=== PATIENT | female | born 1995 | race Caucasian/White ===

== ENCOUNTER 2022-02-22 12:39 | Emergency (ER) | payer OTHER, SELFPAY ==
--- NOTE | ~2022-02-22 | XR_ITS ---
EXAMINATION: XR LUMBOSACRAL SPINE CLINICAL INFORMATION: Low back pain x2 weeks COMPARISON: None TECHNIQUE: Three views of the lumbosacral spine. FINDINGS: There is a transitional vertebra at the lumbosacral junction with 4 lumbar type nonrib-bearing vertebra. Vertebral body heights and disc spaces are intact with no fracture or spondylolisthesis. No bony destructive lesions. Bilateral sacroiliac joints demonstrate mild sclerosis. Bowel gas pattern unremarkable XR/XR lumbar spine 2-3V IMPRESSION: No acute bony abnormality. There is mild sclerosis in the bilateral sacroiliac joints and mild sacroiliitis cannot be excluded
[2022-02-22 13:21] VITALS: BP 107/42; PULSE 66; RESP 18; TEMP 36.4; O2SAT 100; BMI 32.1
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
[2022-02-22 16:24] LABS: UPreg QC Valid YES; Urine Pregnancy NEGATIVE (NEGATIVE)
== END 2022-02-22 17:43 | disposition home or self-care (01) ==
PROVIDERS: Physician Assistant Medical; Emergency Provider Emergency Medicine
DX: S39.012A Strain of muscle, fascia and tendon of lower back, initial encounter (principal); V89.2XXA Person injured in unspecified motor-vehicle accident, traffic, initial encounter; Y93.9 Activity, unspecified; Y92.410 Unspecified street and highway as the place of occurrence of the external cause; Y99.9 Unspecified external cause status
CPT/HCPCS: 72100; 81025; 99283

== ENCOUNTER 2022-03-09 11:02 | Outpatient (REF) | payer OTHER, SELFPAY | END 2022-03-09 11:03 | disposition home or self-care (01) | LOC: HO.MAMMO 11:02 | PROVIDERS: Visit Provider Registered Nurse Community Health | DX: O92.6 Galactorrhea (principal) | CPT/HCPCS: 76642 ==

== ENCOUNTER 2022-05-01 14:04 | Emergency (ER) | payer OTHER, SELFPAY ==
[2022-05-01 14:40] VITALS: BP 105/53; PULSE 80; RESP 18; TEMP 36.3; O2SAT 99; BMI 32.0
[2022-05-01 15:21] LABS: Appearance Urine CLEAR; Color Urine YELLOW; Glucose Urine UA NEG (NEG); Leukocyte Esterase Urine NEG (NEG); Nitrite Urine NEG (NEG); Specific Gravity - Urine 1.025 (1.005-1.025); Urine Blood NEG (NEG); Urine Ketones NEG (NEG); Urine Protein NEG (NEG-TRACE)
[2022-05-01 16:14] LABS: MANUAL DIFF FLAG NO
[2022-05-01 16:16] LABS: Basophils Absolute Auto 0.1 X10*3/uL (0.0-0.2); Basophils Percent Auto 0.6 % (0-2); Eosinophils Absolute Auto 0.1 X10*3/uL (0.0-0.4); Eosinophils Percent Auto 1.5 % (0-4); Hematocrit 36.7 % (37.0-47.0); Hemoglobin 12.6 g/dl (12.0-16.0); Imm Gran Abs Auto 0.02 X10*3/uL (0.00-0.03); Imm Gran Pct Auto 0.2 % (0.0-0.4); Lymphocytes Absolute Auto 2.7 X10*3/uL (1.2-4.9); Lymphocytes Percent Auto 29.6 % (20-40); Mean Corpuscular HGB Conc 34.3 g/dl (31.0-35.0); Mean Corpuscular Hemoglobin 29.9 pg (27.0-33.0); Mean Corpuscular Volume 87.2 fL (80.0-98.0); Mean Platelet Volume 9.7 fL (9.4-12.3); Monocytes Absolute Auto 0.4 X10*3/uL (0.1-1.2); Monocytes Percent Auto 3.9 % (2-11); Neutrophils Absolute Auto 5.7 x10*3/uL (2.0-8.3); Neutrophils Percent Auto 64.2 % (45-73); Platelet Count 288 X10*3/uL (160-400); Red Blood Count 4.21 X10*6/uL (4.20-5.50); White Blood Count 8.9 X10*3/uL (4.8-10.8)
[2022-05-01 16:32] LABS: Anion Gap 14 (12-20); Blood Urea Nitrogen 14 mg/dL (9-16); Calcium 9.1 mg/dL (8.4-10.2); Carbon Dioxide 23 mmol/L (22-29); Chloride 105 mmol/L (96-108); Creatinine Clr Calc Pharmacy 108.5; Estimated Glomerular Filt Rate > 60; Glucose Random 78 mg/dL (60-115); Potassium 3.8 mmol/L (3.3-5.1); Sodium 138 mmol/L (135-145)
[2022-05-01 18:37] LABS: UPreg QC Valid YES; Urine Pregnancy POSITIVE (NEGATIVE)
--- NOTE | 2022-05-02 00:11 | PC.NURSE ---
pt called to bring back into the room. no answer
== END 2022-05-02 00:24 | disposition left against medical advice (07) ==
LOC: HO.ED 05-02 00:20
PROVIDERS: Emergency Medicine; Emergency Provider Emergency Medicine
DX: M54.50 Low back pain, unspecified (principal); Z79.899 Other long term (current) drug therapy
CPT/HCPCS: 36415; 80048; 81003; 81025; 85025; 99282

== ENCOUNTER → 2022-05-19 10:10 | Outpatient (BNVA) | payer OTHER, SELFPAY | PROVIDERS: Visit Provider Advanced Practice Midwife | DX: Z32.01 Encounter for pregnancy test, result positive (principal) | CPT/HCPCS: 81025; 99202 ==

== ENCOUNTER 2022-05-21 13:05 | Outpatient (REF) | payer OTHER, SELFPAY ==
--- NOTE | ~2022-05-21 | US_ITS ---
EXAMINATION: US OBSTETRICAL ULTRASOUND CLINICAL INFORMATION: Positive test COMPARISON: None. LMP: Unknown. Gestational age by maternal dates is . Estimated date of delivery by maternal dates is . TECHNIQUE: Transabdominal first trimester OB ultrasound FINDINGS: There is a single intrauterine gestational sac with visible yolk sac, embryo/fetus, and cardiac activity. There is no significant subchorionic hemorrhage or hematoma. HR: 183 beats per minute. CRL (crown rump length): 1.9 cm (8 weeks 4 days +/- 4 days). HEATH (estimated date of delivery): 12/27/2022 +/- 4 days. MATERNAL ADNEXA: The right maternal ovary measures 2.3 x 1.6 x 1.5 cm. The left maternal ovary measures 3.4 x 1.8 x 2.2 cm. there is a 1.5 cm left ovarian cyst. There is no significant maternal adnexal mass. No maternal pelvic ascites. US/US OB <= 14 weeks fetus IMPRESSION: 1. Single intrauterine gestation with ultrasound gestational age of 8 weeks 4 days +/- 4 days. 2. Estimated date of delivery is 12/27/2022 +/- 4 days. 3. No maternal adnexal mass or pelvic ascites.
== END 2022-05-21 13:06 | disposition home or self-care (01) ==
LOC: HO.US 13:05
PROVIDERS: Visit Provider Advanced Practice Midwife
DX: Z34.91 Encounter for supervision of normal pregnancy, unspecified, first trimester (principal); Z3A.08 8 weeks gestation of pregnancy
CPT/HCPCS: 76801

== ENCOUNTER → 2022-05-24 10:58 | Outpatient (BNVA) | payer OTHER, SELFPAY | PROVIDERS: Visit Provider Advanced Practice Midwife | DX: Z34.80 Encounter for supervision of other normal pregnancy, unspecified trimester (principal); Z3A.00 Weeks of gestation of pregnancy not specified | CPT/HCPCS: Q3014 ==

== ENCOUNTER 2022-06-14 09:27 | Emergency (ER) | payer OTHER, SELFPAY ==
--- NOTE | ~2022-06-14 | US_ITS ---
EXAMINATION: US OBSTETRICAL ULTRASOUND CLINICAL INFORMATION: Bleeding with clots. COMPARISON: Pelvic ultrasound 05/21/2022. LMP: Unsure. TECHNIQUE: Ultrasound of the maternal pelvis is performed using transabdominal and transvaginal transducers. Transvaginal imaging is performed due to inadequate visualization transabdominally. FINDINGS: No evidence of intrauterine . The mid and lower endometrium are thickened and heterogeneous measuring up to 2.3 cm with some questionable associated mild vascularity. The right adnexa is not well visualized due to shadowing from overlying bowel gas, and the right ovary was not identified. The left ovary is normal in size with preserved flow at the moment of this examination measuring 2.4 x 1.5 x 1.2 cm. No significant amount of free fluid. US/US OB pelvic and transvaginal IMPRESSION: No evidence of intrauterine . Thickened and heterogeneous endometrium with some equivocal associated mild vascularity, nonspecific, could be related with retained products of conception or blood products. Recommend correlation with physical examination, quantitative hCG measurements and close imaging follow-up.
[2022-06-14 09:35] VITALS: BP 117/77; PULSE 52; RESP 20; TEMP 36.8; O2SAT 99; BMI 32.4
--- NOTE | 2022-06-14 09:58 | ED_ITS ---
HPI - Female Genitourinary General Chief complaint: Vaginal Bleeding Stated complaint: Miscarriage? 11 wks preg Time Seen by Provider: 06/14/22 09:40 Source: patient Mode of arrival: ambulatory Limitations: no limitations History of Present Illness HPI Narrative: Patient presents emergency department for evaluation vaginal bleeding. She reports that she is currently 11 weeks 5 days , is uncertain of the date of her last menstrual period, stating that she had an ultrasound to confirm gestation. She 1st noticed bleeding 2 days ago that was very light and spotting, she states that she contacted her primary care doctor who advised her that if it was only very light in only noticed with in the toilet paper that likely things will be okay but if it changed in any way she should be evaluated in the emergency department. By her report she is changing a regular absorbency pad every 2 minutes, stating that the full pad is saturated within that time frame and there is presence of clots. Has associated lower abdominal cramping. She has not yet contacted her OB provider. She had her first OB a ppointment through [facility] earlier this month, she states she is in the process of transferring her OB care. Denies fevers, chills, nausea,, chest pain shortness of pain, dysuria, Faisal/urgency/hesitancy, denies possibility of sexually transmitted infections. Related Data Home Medications Medication Instructions Recorded Confirmed prenat.vits,barby,fax-vmky-bnioj 1 tab PO DAILY 05/24/22 Previous Rx's Medication Instructions Recorded pyridoxine (vitamin B6) 25 mg 25 mg PO TID #90 tabs 05/19/22 tablet Allergies Allergy/AdvReac Type Severity Reaction Status Date / Time No Known Allergies Allergy Verified 05/24/22 10:59 [No Known Allergies*] Review of Systems Review of Systems: Constitutional : No Fever, No Chills ENT/Mouth : No sore throat, No Rhinorrhea Eyes: No Eye Pain, No Redness Cardiovascular : No Chest Pain, No SOB Respiratory : No Cough, No Sputum, No Wheezing Gastrointestinal : No Nausea, No Vomiting, No Diarrhea, positive abdominal pain, Genitourinary : positive vaginal bleeding, No Dysuria, No Urinary Frequency, positive pelvic pain Musculoskeletal : No Myalgias Skin : No rash Neuro : No Weakness, No Headache Psych : No Anxiety/Panic, No Depression Heme/Lymph: No bruising, No Lymphadenopathy Endocrine : No Polyuria, No Polydipsia Yes all other systems are reviewed and are negative [facility] Past Medical History Attestation statement: The following information was validated with the patient. Medical History ADD (attention deficit disorder) ADHD Back problem No known health problems Physical Exam Vital Signs: Vital Signs: Last Vital Signs Temp 98.7 F 06/14/22 15:08 Pulse 80 06/14/22 15:08 Resp 15 06/14/22 15:08 BP 121/54 L 06/14/22 15:08 Pulse Ox 100 06/14/22 15:08 O2 Del Method 06/14/22 15:08 BMI result Body Mass Index 32.4 Appearance: Alert.?Oriented to person, place and time. No acute distress.?Normal affect. Eyes: Pupils equal, round and reactive to light.? ENT: Pharynx normal.?? Neck: Normal inspection.? Neck supple.?? CVS: Heart sounds normal. Normal heart rate and rhythm.? Pulses normal.?? Respiratory: No respiratory distress.? Lung sounds clear to auscultation bilaterally?? Abdomen: Soft and non-tender. Normoactive bowel sounds. Genitourinary:? Supervised by superintendent schoolsIris Hartley.. Normal external appearance of urethra.? No lesions/lacerations or discharge or tenderness noted. Speculum exam: Presence of vaginal active bleeding noted with presence of clots.?No foreign bodies noted.? Positive vaginal tenderness noted. Unable to visualize the cervix due to the amount of bleeding, it is unclear whether the cervical os is open or closed at this time. Normal rectovaginal exam.?? Skin: Skin warm and dry.? Normal skin color.? Extremities: No lower extremity edema.? No calf ttp? Neuro: Moves all extremities spontaneously. Sensation intact bilaterally. No motor deficits Ambulates with normal steady gait. Course Course Course Narrative: Patient is a 27-year-old female G6 T2 L2, currently 11w/5d due date 12/27/2022 presenting to emergency department today for evaluation of lower abdominal cramping and vaginal bleeding with presents of clots. Patient rep orting a significant amount of bleeding requiring pads to be changed every 2 minutes, at the time of examination there is no significant bleeding/hemorrhage noted. She does have tenderness upon palpation of the lower abdomen. She is overall well appearing. Vital signs are stable, she is noted to be bradycardic however with heart rate of 52. Will obtain CBC, Rh, CMP, urinalysis, hCG, pelvic ultrasound, and plan for genitourinary pelvic examination. Reevaluation(s) Reevaluation #1: Perform pelvic exam with ED silk top hat body maker, iris Hartley, difficulty visualizing the cervix, copious amounts of bleeding, with presence of clots, despite clearing blood again report also. Review of serum labs, hemoglobin 12.4 and hematocrit 36.2. HCG is 2097. Ultrasound is pending at this time. Blood type is O-positive therefore she will not require RhoGAM. She remains well appearing, vital signs are stable. Reached out to care analyst on-call Dr. Pathak, to make him aware of patient, as she may require further evaluation. He will come down to evaluate the patient. Time: 10:44 Reevaluation #2: Dr. Pathak examined patient, no active bleeding at this time. Ultrasound is still pending. Plan to monitor patient for the next few hours, if ultrasound reveals obvious products of conception or patient begins to rebleed he will consider taking patient for D&C, Patient to remain NPO at this time Time: 12:15 Reevaluation #3: 1240: Ultrasound reveals no evidence of intrauterine , thickened and heterogeneous endometrium with some equivocal findings for retained products of conception or blood products. 1515: Patient with scant amount of bleeding as when evaluated Dr. Pathak. At this point clinical course appears like complete , however was concern on ultrasound for possible retained products of conception, therefore will discharge home with incomplete warnings, reasons to come back including heavy bleeding, cramping, fevers, advised that she will require outpatient follow-up in office within 2 weeks. Patient verbalized understanding. She is discharged home in stable condition. MDM - Female Genitourinary Medical Records Attestation: I reviewed the patient's medical records. Lab Data Attestation: I reviewed the patient's lab results. Result diagrams: 06/14/22 10:11 06/14/22 10:11 Labs: Lab Results 06/14/22 06/14/22 06/14/22 Range/Units 10:11 10:11 10:30 WBC 10.7 (4.8-10.8) X10*3/uL RBC 4.11 L (4.20-5.50) X10*6/uL Hgb 12.4 (12.0-16.0) g/dl Hct 36.2 L (37.0-47.0) % MCV 88.1 (80.0-98.0) fL MCH 30.2 (27.0-33.0) pg MCHC 34.3 (31.0-35.0) g/dl RDW 12.7 (11.0-16.0) % Plt Count 258 (160-400) X10*3/uL MPV 9.6 (9.4-12.3) fL Immature Gran % (Auto) 0.5 H (0.0-0.4) % Neut % (Auto) 74.2 H (45-73) % Lymph % (Auto) 18.3 L (20-40) % [place] % (Auto) 4.3 (2-11) % Eos % (Auto) 2.2 (0-4) % Baso % (Auto) 0.5 (0-2) % Lymph # (Auto) 2.0 (1.2-4.9) X10*3/uL [place] # (Auto) 0.5 (0.1-1.2) X10*3/uL Eos # (Auto) 0.2 (0.0-0.4) X10*3/uL Baso # (Auto) 0.1 (0.0-0.2) X10*3/uL Abs Immat Gran (auto) 0.05 H (0.00-0.03) X10*3/uL Absolute Neuts (auto) 7.9 (2.0-8.3) x10*3/uL Absolute Nucleated RBC 0.000 (0.0-0.012) X10*3/uL Nucleated RBC % (auto) 0.0 (0.0-0.2) /100WBC Sodium 140 (135-145) mmol/L Potassium 4.1 (3.3-5.1) mmol/L Chloride 103 (96-108) mmol/L Carbon Dioxide 26 (22-29) mmol/L Anion Gap 15 (12-20) BUN 12 (9-16) mg/dL Creatinine 0.70 (0.5-1.4) mg/dL Estim Creat Clear Calc 118.6 Estimated GFR > 60 Random Glucose 101 (60-115) mg/dL Calcium 9.6 (8.4-10.2) mg/dL Magnesium 1.8 (1.6-2.6) mg/dL Total Bilirubin 0.7 (0.0-1.0) mg/dL AST 17 (5-31) U/L ALT 15 (0-31) U/L Alkaline Phosphatase 60 (39-117) U/L Total Protein 6.8 (6.5-8.0) g/dL Albumin 4.0 (3.5-5.0) g/dL Beta HCG, Quant 2097 mIU/mL Urine Color Urine Appearance Urine pH (5.0-8.0) Ur Specific [place] (1.005-1.025) Urine Protein (Neg-Trace) mg/dL Urine Glucose (UA) (Negative) mg/dL Urine Ketones (Negative) mg/dL Urine Blood (Negative) Urine Nitrite (Negative) Ur Leukocyte Esterase (Negative) Urine RBC (0-2) /HPF Urine WBC (0-5) /HPF Ur Squamous Epith Cells (0-2) /HPF Urine Bacteria (None Seen) Hyaline Casts (0-2) /LPF Chlam trachomat DNA PCR (Not Detect.) N.gonorrhoeae DNA (PCR) (Not Detect.) Blood Type O Positive 06/14/22 06/14/22 Range/Units 10:30 12:57 WBC (4.8-10.8) X10*3/uL RBC (4.20-5.50) X10*6/uL Hgb (12.0-16.0) g/dl Hct (37.0-47.0) % MCV (80.0-98.0) fL MCH (27.0-33.0) pg MCHC (31.0-35.0) g/dl RDW (11.0-16.0) % Plt Count (160-400) X10*3/uL MPV (9.4-12.3) fL Immature Gran % (Auto) (0.0-0.4) % Neut % (Auto) (45-73) % Lymph % (Auto) (20-40) % [place] % (Auto) (2-11) % Eos % (Auto) (0-4) % Baso % (Auto) (0-2) % Lymph # (Auto) (1.2-4.9) X10*3/uL [place] # (Auto) (0.1-1.2) X10*3/uL Eos # (Auto) (0.0-0.4) X10*3/uL Baso # (Auto) (0.0-0.2) X10*3/uL Abs Immat Gran (auto) (0.00-0.03) X10*3/uL Absolute Neuts (auto) (2.0-8.3) x10*3/uL Absolute Nucleated RBC (0.0-0.012) X10*3/uL Nucleated RBC % (auto) (0.0-0.2) /100WBC Sodium (135-145) mmol/L Potassium (3.3-5.1) mmol/L Chloride (96-108) mmol/L Carbon Dioxide (22-29) mmol/L Anion Gap (12-20) BUN (9-16) mg/dL Creatinine (0.5-1.4) mg/dL Estim Creat Clear Calc Estimated GFR Random Glucose (60-115) mg/dL Calcium (8.4-10.2) mg/dL Magnesium (1.6-2.6) mg/dL Total Bilirubin (0.0-1.0) mg/dL AST (5-31) U/L ALT (0-31) U/L Alkaline Phosphatase (39-117) U/L Total Protein (6.5-8.0) g/dL Albumin (3.5-5.0) g/dL Beta HCG, Quant mIU/mL Urine Color RED Urine Appearance Turbid Urine pH 7.5 (5.0-8.0) Ur Specific [place] >= 1.030 H (1.005-1.025) Urine Protein 300 (3+) H (Neg-Trace) mg/dL Urine Glucose (UA) 100 H (Negative) mg/dL Urine Ketones Negative (Negative) mg/dL Urine Blood Large (3+) H (Negative) Urine Nitrite Negative (Negative) Ur Leukocyte Esterase Negative (Negative) Urine RBC >20 H (0-2) /HPF Urine WBC 0-5 (0-5) /HPF Ur Squamous Epith Cells 0-2 (0-2) /HPF Urine Bacteria Trace (None Seen) Hyaline Casts 0-2 (0-2) /LPF Chlam trachomat DNA PCR NOT DETECTED (Not Detect.) N.gonorrhoeae DNA (PCR) NOT DETECTED (Not Detect.) Blood Type Imaging Data pelvic US: Radiologist's impression: US/US OB pelvic and transvaginal IMPRESSION: No evidence of intrauterine . ? Thickened and heterogeneous endometrium with some equivocal associated mild vascularity, nonspecific, could be related with retained products of conception or blood products. Recommend correlation with physical examination, quantitative hCG measurements and close imaging follow-up. Discharge Plan Discharge Clinical Impression: Incomplete Patient Disposition: Home, Self-Care Additional Instructions: As we discussed, your bleeding has nearly completely subsided. It is possible that the miscarriage is complete. However, as we discussed if you develop a return of heavy bleeding, cramping, or fevers you should come back to the emergency department. Please contact the OBGYN office to arrange for a follow-up visit in 2 weeks. You may return to emergency department with any new or worsening symptoms or concerns. Prescriptions: No Action pyridoxine (vitamin B6) 25 mg tablet 25 mg PO TID Qty: 90 0RF prenat.vits,barby,[id number]-[id number] Tablet 1 tab PO DAILY Referrals: Aron Pathak MD [Physician] - 2 weeks Interventions: ED Discharge Assessment Last Done: 06/14/22 15:44 Discharge Date/Time: 06/14/22 15:44
[2022-06-14 10:16] LABS: Basophils Absolute Auto 0.1 X10*3/uL (0.0-0.2); Basophils Percent Auto 0.5 % (0-2); Eosinophils Absolute Auto 0.2 X10*3/uL (0.0-0.4); Eosinophils Percent Auto 2.2 % (0-4); Hematocrit 36.2 % (37.0-47.0); Hemoglobin 12.4 g/dl (12.0-16.0); Imm Gran Abs Auto 0.05 X10*3/uL (0.00-0.03); Imm Gran Pct Auto 0.5 % (0.0-0.4); Lymphocytes Percent Auto 18.3 % (20-40); MANUAL DIFF FLAG NO; Mean Corpuscular HGB Conc 34.3 g/dl (31.0-35.0); Mean Corpuscular Hemoglobin 30.2 pg (27.0-33.0); Mean Corpuscular Volume 88.1 fL (80.0-98.0); Mean Platelet Volume 9.6 fL (9.4-12.3); Monocytes Absolute Auto 0.5 X10*3/uL (0.1-1.2); Monocytes Percent Auto 4.3 % (2-11); Neutrophils Absolute Auto 7.9 x10*3/uL (2.0-8.3); Neutrophils Percent Auto 74.2 % (45-73); Platelet Count 258 X10*3/uL (160-400); Red Blood Count 4.11 X10*6/uL (4.20-5.50); Red Cell Distribution Width 12.7 % (11.0-16.0); White Blood Count 10.7 X10*3/uL (4.8-10.8)
[2022-06-14 10:33] LABS: Alanine Aminotransferase 15 U/L (0-31); Alkaline Phosphatase 60 U/L (39-117); Anion Gap 15 (12-20); Aspartate Amino Transferase 17 U/L (5-31); Bilirubin Total 0.7 mg/dL (0.0-1.0); Blood Urea Nitrogen 12 mg/dL (9-16); Calcium 9.6 mg/dL (8.4-10.2); Carbon Dioxide 26 mmol/L (22-29); Chloride 103 mmol/L (96-108); Creatinine Clr Calc Pharmacy 118.6; Estimated Glomerular Filt Rate > 60; Glucose Random 101 mg/dL (60-115); Magnesium 1.8 mg/dL (1.6-2.6); Potassium 4.1 mmol/L (3.3-5.1); Sodium 140 mmol/L (135-145); Total Protein 6.8 g/dL (6.5-8.0)
[2022-06-14 10:39] LABS: HCG Quantitative 2097 mIU/mL
[2022-06-14 10:44] LABS: Appearance Urine Turbid; Color Urine RED; Glucose Urine UA 100 mg/dL (Negative); Leukocyte Esterase Urine Negative (Negative); Nitrite Urine Negative (Negative); PH 7.5 (5.0-8.0); Urine Blood Large (3+) (Negative); Urine Ketones Negative (Negative); Urine Protein 300 (3+) mg/dL (Neg-Trace)
[2022-06-14 10:45] VITALS: BP 105/49; PULSE 77; RESP 17; TEMP 36.9; O2SAT 97
[2022-06-14 10:49] LABS: Specific Gravity - Urine >= 1.030 (1.005-1.025)
[2022-06-14 11:01] LABS: Bacteria Urine Trace (None Seen); RBC Urine >20 /HPF (0-2); Squamous Epithelial Cell Urine 0-2 /HPF (0-2); WBC Urine 0-5 /HPF (0-5)
[2022-06-14 11:38] LABS: Hyaline Casts Urine 0-2 /LPF (0-2)
--- NOTE | 2022-06-14 12:02 | PM.OBCN ---
OB Consult Note - HPI Data Service Date: 06/14/22 Primary Care Provider: [facility] Narrative I was consulted on Sweta Sanderson who is a 27 year old female at 13 weeks and 1 day of gestation by 8 weeks and 4 days of gestation ultrasound done on 05/21 OB PMF[facility] Past Medical History Medical History ADD (attention deficit disorder) ADHD Back problem No known health problems Social History Social History Advance Directives: No Advance Directives Information Provided: No Meds Allergies Allergy/AdvReac Type Severity Reaction Status Date / Time No Known Allergies Allergy Verified 05/24/22 10:59 [No Known Allergies*] Home Medications Medication Instructions Recorded Confirmed Last Taken Type prenat.vits,barby,cfj-ciya-ljzjd 1 tab PO DAILY 05/24/22 Unknown History OB Flowsheet OB Flowsheet & Tools History 3 Elective abortions Para Spontaneous abortions 1 Hx # Term Pregnancies 2 Ectopic pregnancies Hx # Pregnancies Multiple births OB Consult Results Labs CBC & Chem 7: 06/14/22 10:11 06/14/22 10:11 Labs: Short CBC 06/14/22 Range/Units 10:11 WBC 10.7 (4.8-10.8) X10*3/uL Hgb 12.4 (12.0-16.0) g/dl Hct 36.2 L (37.0-47.0) % Plt Count 258 (160-400) X10*3/uL BMP 06/14/22 10:11 Sodium 140 Potassium 4.1 Chloride 103 Carbon Dioxide 26 BUN 12 Creatinine 0.70 Calcium 9.6 Liver Function 06/14/22 Range/Units 10:11 Total Bilirubin 0.7 (0.0-1.0) mg/dL AST 17 (5-31) U/L ALT 15 (0-31) U/L Alkaline Phosphatase 60 (39-117) U/L Albumin 4.0 (3.5-5.0) g/dL Urine 06/14/22 Range/Units 10:30 Urine Color RED Urine Appearance Turbid Urine pH 7.5 (5.0-8.0) Ur Specific [place] >= 1.030 H (1.005-1.025) Urine Protein 300 (3+) H (Neg-Trace) mg/dL Urine Glucose (UA) 100 H (Negative) mg/dL
--- NOTE | 2022-06-14 12:18 | PC.NURSE ---
Jelena Echols and Dr. Pathak present for pelvic exam. JELENA Echols states there was scant bleeding after pelvic exam. pt tolerated well, no pain reported. Awaiting results from ultrasound. Pt made NPO for possible anticipated D&C.
--- NOTE | 2022-06-14 12:20 | PM.GYNCN ---
BANANA EXPERT - CN: HPI Data of Consult Consult date: 06/14/22 Primary Care Provider: [facility] Consult Narrative Narrative: I was consulted on Sweta Sanderson who is a 27 year old female at 13 weeks and 1 day of gestation by an 8 weeks and 4 days ultrasound done on 05/21. The patient start having spotting 2 days prior to presentation woke up this morning with severe cramping and heavy vaginal bleeding associated with passage of blood clots. Over the last an hour and half the patient's bleeding has slowed down markedly and pelvic cramping has resolved. Rh positive. H&H in the emergency room was 12.4/36.2. Pelvic US showed: No evidence of intrauterine . Thickened and heterogeneous endometrium with some equivocal associated mild vascularity, nonspecific, could be related with retained products of conception or blood products. Recommend correlation with physical examination, quantitative hCG measurements and close imaging follow-up. cc:: CC: OB [facility] Past Medical History Medical History ADD (attention deficit disorder) ADHD Back problem No known health problems Social History Social History Advance Directives: No Advance Directives Information Provided: No Meds Allergies Allergy/AdvReac Type Severity Reaction Status Date / Time No Known Allergies Allergy Verified 05/24/22 10:59 [No Known Allergies*] Home Medications Medication Instructions Recorded Confirmed Last Taken Type prenat.vits,barby,hpv-poav-upvwy 1 tab PO DAILY 05/24/22 Unknown History BANANA EXPERT Physical Exam Vitals Vital signs: Temp Pulse Resp BP Pulse Ox O2 Del Method 98.5 F 77 17 105/49 L 97 06/14/22 10:45 06/14/22 10:45 06/14/22 10:45 06/14/22 10:45 06/14/22 10:45 06/14/22 10:45 BMI result Body Mass Index 32.4 Abdomen Auscultation/Inspection/Palpation: Normal bowel sounds, Soft and Non-distended Female Genitalia (Pelvic) Bladder/Urethra: Normal meatus Vagina: Nontender Cervix: Grossly normal Adnexa/Parametria: Adnexal Tenderness: None, Adnexal Mass: None, Parametrial Tenderness: None and Parametrial Mass: None Additional Comments: No active bleeding per vagina. BANANA EXPERT - Results Labs CBC & Chem 7: 06/14/22 10:11 06/14/22 10:11 Labs: Short CBC 06/14/22 Range/Units 10:11 WBC 10.7 (4.8-10.8) X10*3/uL Hgb 12.4 (12.0-16.0) g/dl Hct 36.2 L (37.0-47.0) % Plt Count 258 (160-400) X10*3/uL BMP 06/14/22 10:11 Sodium 140 Potassium 4.1 Chloride 103 Carbon Dioxide 26 BUN 12 Creatinine 0.70 Calcium 9.6 Liver Function 06/14/22 Range/Units 10:11 Total Bilirubin 0.7 (0.0-1.0) mg/dL AST 17 (5-31) U/L ALT 15 (0-31) U/L Alkaline Phosphatase 60 (39-117) U/L Albumin 4.0 (3.5-5.0) g/dL Urine 06/14/22 Range/Units 10:30 Urine Color RED Urine Appearance Turbid Urine pH 7.5 (5.0-8.0) Ur Specific [place] >= 1.030 H (1.005-1.025) Urine Protein 300 (3+) H (Neg-Trace) mg/dL Urine Glucose (UA) 100 H (Negative) mg/dL Imaging US - abdomen: Radiologist's impression: ITS Impressions Pelvic/Transvag US 06/14/22 11:10 IMPRESSION: No evidence of intrauterine . Thickened and heterogeneous endometrium with some equivocal associated mild vascularity, nonspecific, could be related with retained products of conception or blood products. Recommend correlation with physical examination, quantitative hCG measurements and close imaging follow-up. Assessment and Plan (1) Complete : Status: Acute Discussed with the patient the finding on physical exam and ultrasound, and her clinical situation. Since vaginal bleeding slowed down markedly and pelvic cramping resolved, clinical situation could be consistent with complete . Recommended to XAVIER Thao in the emergency room the following: Keep the patient for observation for 2 hours, if no heavy vaginal bleeding, the patient is to be discharged home with incomplete warnings, she is to come back to the emergency room if pelvic cramping and/ or vaginal bleeding recurs or fever above 100.4, with outpatient follow-up in 1-2 weeks.
[2022-06-14 13:32] VITALS: BP 114/64; PULSE 78; RESP 16; TEMP 36.9; O2SAT 99
--- NOTE | 2022-06-14 13:33 | PC.NURSE ---
Scant bleeding present, no pain reported.
[2022-06-14 15:08] VITALS: BP 121/54; PULSE 80; RESP 15; TEMP 37.1; O2SAT 100
[2022-06-14 17:01] LABS: CT PCR NOT DETECTED (Not Detect.); NG PCR NOT DETECTED (Not Detect.)
== END 2022-06-14 15:44 | disposition home or self-care (01) ==
PROVIDERS: Nurse Practitioner Family; Emergency Provider Emergency Medicine
DX: O03.4 Incomplete spontaneous abortion without complication (principal)
CPT/HCPCS: 36415; 76801; 76817; 80053; 81001; 83735; 84702; 85025; 86900; 86901; 87491; 87591; 99284

== ENCOUNTER 2022-10-08 18:36 | Emergency (ER) | payer OTHER, SELFPAY ==
--- NOTE | 2022-10-08 | ECG_ITS ---
Test Reason : SOB Blood Pressure : / mmHG Vent. Rate : 120 BPM Atrial Rate : 120 BPM P-R Int : 150 ms QRS Dur : 082 ms QT Int : 308 ms P-R-T Axes : 058 010 034 degrees QTc Int : 435 ms Sinus tachycardia Otherwise normal ECG No previous ECGs available Referred By: Generic ED Physician Electronically Signed By:Kane Carbajal
--- NOTE | ~2022-10-08 | XR_ITS ---
EXAMINATION: XR CHEST CLINICAL INFORMATION: Chest pressure, tachycardia, respiratory distress. COMPARISON: Chest radiograph 12/24/2008.
[2022-10-08 18:43] VITALS: BP 118/69; BP 128/78; PULSE 120; PULSE 132; RESP 24; TEMP 39.6; O2SAT 97; O2SAT 98; BMI 32.9
--- NOTE | 2022-10-08 19:05 | ED.URI ---
HPI - URI/Sore Throat General Chief Complaint: Upper Respiratory Symptoms Stated Complaint: SOB/Headache Time Seen by Provider: 10/08/22 19:04 Source: patient Mode of arrival: ambulatory Limitations: no limitations History of Present Illness HPI Narrative: 27-year-old female presents for 1 week of shortness of breath, fevers, chills, cough, sore throat, fatigue and malaise. She presents the emergency department with a fever of 103.2, and an elevated heart rate of 120. Patient states that she cannot get comfortable and feels weak. She does not report chest pain or pressure, abdominal pain, nausea or vomiting. MD elicited complaint: fever, cough, sore throat, rhinorrhea and nasal congestion Onset (ago): week(s) (1) Consistency: constant and progressively worsening Severity: moderate Pain scale (0-10): 7 Description of mucous: clear Able to tolerate fluids by mouth: Yes Relieving factors: nothing Context: sick contacts Associated symptoms: fever, chills, voice changes, myalgias, headache, rhinorrhea, nasal congestion, sore throat, cough and shortness of breath Treatments prior to arrival: none Related Data Home Medications Medication Instructions Recorded Confirmed prenat.vits,barby,dur-rwdw-aazja 1 tab PO DAILY 05/24/22 Previous Rx's Medication Instructions Recorded pyridoxine (vitamin B6) 25 mg 25 mg PO TID #90 tabs 05/19/22 tablet Allergies Allergy/AdvReac Type Severity Reaction Status Date / Time No Known Allergies Allergy Verified 10/08/22 18:52 [No Known Allergies*] Review of Systems Review of Systems: Constitutional: positive Fever, positive Chills, positive fatigue, positive Malaise ENT/Mouth: positive sore throat, positive runny nose Eyes: No Discharge Cardiovascular: No Chest Pain, positive SOB Respiratory: Positive Cough, No Sputum, No Wheezing, No Dyspnea Gastrointestinal: No Nausea, No Vomiting, No Diarrhea Musculoskeletal: positive Myalgia Skin: No rash Neuro: Positive Headache Yes all other systems are reviewed and are negative PMFSH Past Medical History Attestation statement: The following information was validated with the patient. Source: old records reviewed Medical History ADD (attention deficit disorder) ADHD Back problem No known health problems Social History Social History Advance Directives: No Advance Directives Information Provided: No Physical Exam Vital Signs: Vital Signs: Last Vital Signs Temp 103.2 F H 10/08/22 18:43 Pulse 102 H 10/08/22 22:24 Resp 22 H 10/08/22 22:24 BP 120/84 10/08/22 22:24 Pulse Ox 97 10/08/22 22:24 O2 Del Method 10/08/22 22:24 BMI result Body Mass Index 32.9 Appearance: Alert. Oriented X3. Moderate distress. Flushed face. Eyes: Pupils equal, round and reactive to light. Sclera nonicteric. ENT: Pharynx normal. Dry mucous membranes. Neck: Normal inspection. Neck supple. No nuchal rigidity. CVS: Normal heart rate and rhythm. Pulses normal. Respiratory: No respiratory distress. Breath sounds normal. Abdomen: Soft and nontender. Skin: Skin warm and dry. Normal skin color. Normal skin turgor. Extremities: Moves all extremities against resistance. Neuro: No motor deficit. No sensory deficit. Cranial nerves 2-12 intact. Course Course Course Narrative: 27-year-old female presents with flu-like symptoms, is febrile at 01:03 0.2, tachycardic at 120. Respirations were 24. While presentation indicates SIRS and sepsis, I feel that this is a viral syndrome. Patient is not septic. If COVID influenza RSV test comes back negative then we will pursue sepsis workup. Lactic and cultures were ordered by prior provider in triage. I will resuscitate with fluids as patient appears dry, and give Toradol. 19:45 patient is influenza positive. Heart rate in the 80s after a L of fluid. O2 sat 97% on room air, even unlabored respirations. Will give Tylenol prior to discharge. Plan of care is to discharge home with supportive measures. Patient verbalized understanding of and agrees to plan of care. Verbalized understanding of signs symptoms indicating need for emergent intervention. Medications Administered Discontinued Medications Generic Name Dose Route Start Last Admin Trade Name Belloq PRN Reason Stop Dose Admin Acetaminophen 650 mg 10/08/22 22:42 10/08/22 22:53 Acetaminophen 325 Mg Tablet PO 10/08/22 22:43 650 mg ONCE ONE Administration Albuterol Sulfate 2 puff 10/08/22 22:52 10/08/22 23:00 Albuterol Sulfate 90 Mcg 8 Gm Inhaler INHALE 10/08/22 22:53 2 puff ONCE ONE Administration Sodium Chloride 1,000 mls @ 999 mls/hr 10/08/22 19:15 10/08/22 20:43 Ns IVCONT 10/08/22 20:15 Infused .Q1H1M LISSA Infusion Ketorolac Tromethamine 30 mg 10/08/22 19:06 10/08/22 19:29 Ketorolac Tromethamine 30 Mg/Ml Vial IVPUSH 10/08/22 19:07 30 mg ONCE ONE Administration Medical Decision Making Differential Diagnosis Differential Diagnoses: The differential diagnosis associated with the presentation includes Influenza, RSV, COVID, pneumonia, sepsis Admission/Observation Consideration of admission/observation: Escalation of care including admission/observation considered If patient is septic, we will consider hospitalization Lab Data MDM Lab Attestation statement: I reviewed the patient's lab results. Result Diagrams: 10/08/22 19:18 10/08/22 19:18 Labs: Lab Results 10/08/22 10/08/22 10/08/22 Range/Units 19:07 19:18 19:18 WBC 5.8 (4.8-10.8) X10*3/uL RBC 4.20 (4.20-5.50) X10*6/uL Hgb 12.5 (12.0-16.0) g/dl Hct 36.8 L (37.0-47.0) % MCV 87.6 (80.0-98.0) fL MCH 29.8 (27.0-33.0) pg MCHC 34.0 (31.0-35.0) g/dl RDW 11.9 (11.0-16.0) % Plt Count 221 (160-400) X10*3/uL MPV 9.8 (9.4-12.3) fL Immature Gran % (Auto) 0.3 (0.0-0.4) % Neut % (Auto) 82.1 H (45-73) % Lymph % (Auto) 9.2 L (20-40) % [place] % (Auto) 7.1 (2-11) % Eos % (Auto) 1.0 (0-4) % Baso % (Auto) 0.3 (0-2) % Lymph # (Auto) 0.5 L (1.2-4.9) X10*3/uL [place] # (Auto) 0.4 (0.1-1.2) X10*3/uL Eos # (Auto) 0.1 (0.0-0.4) X10*3/uL Baso # (Auto) 0.0 (0.0-0.2) X10*3/uL Abs Immat Gran (auto) 0.02 (0.00-0.03) X10*3/uL Absolute Neuts (auto) 4.8 (2.0-8.3) x10*3/uL Absolute Nucleated RBC 0.000 (0.0-0.012) X10*3/uL Nucleated RBC % (auto) 0.0 (0.0-0.2) /100WBC Sodium 137 (135-145) mmol/L Potassium 3.9 (3.3-5.1) mmol/L Chloride 102 (96-108) mmol/L Carbon Dioxide 25 (22-29) mmol/L Anion Gap 14 (12-20) BUN 10 (9-16) mg/dL Creatinine 0.85 (0.5-1.4) mg/dL Estim Creat Clear Calc 98.4 Estimated GFR > 60 Random Glucose 85 (60-115) mg/dL Lactic Acid (0.5-2.0) mmol/L Calcium 9.3 (8.4-10.2) mg/dL Total Bilirubin 0.4 (0.0-1.0) mg/dL AST 28 (5-31) U/L ALT 29 (0-31) U/L Alkaline Phosphatase 86 (39-117) U/L Troponin I High Sens (<3.5-17.0) ng/L Total Protein 7.3 (6.5-8.0) g/dL Albumin 4.3 (3.5-5.0) g/dL Influenza Type A (PCR) POSITIVE A (Negative) Influenza Type B (PCR) NEGATIVE (Negative) RSV RNA Qual (PCR) NEGATIVE (Negative) SARS-CoV-2 RNA (RT-PCR) NEGATIVE (Negative) 10/08/22 10/08/22 Range/Units 19:18 19:18 WBC (4.8-10.8) X10*3/uL RBC (4.20-5.50) X10*6/uL Hgb (12.0-16.0) g/dl Hct (37.0-47.0) % MCV (80.0-98.0) fL MCH (27.0-33.0) pg MCHC (31.0-35.0) g/dl RDW (11.0-16.0) % Plt Count (160-400) X10*3/uL MPV (9.4-12.3) fL Immature Gran % (Auto) (0.0-0.4) % Neut % (Auto) (45-73) % Lymph % (Auto) (20-40) % [place] % (Auto) (2-11) % Eos % (Auto) (0-4) % Baso % (Auto) (0-2) % Lymph # (Auto) (1.2-4.9) X10*3/uL [place] # (Auto) (0.1-1.2) X10*3/uL Eos # (Auto) (0.0-0.4) X10*3/uL Baso # (Auto) (0.0-0.2) X10*3/uL Abs Immat Gran (auto) (0.00-0.03) X10*3/uL Absolute Neuts (auto) (2.0-8.3) x10*3/uL Absolute Nucleated RBC (0.0-0.012) X10*3/uL Nucleated RBC % (auto) (0.0-0.2) /100WBC Sodium (135-145) mmol/L Potassium (3.3-5.1) mmol/L Chloride (96-108) mmol/L Carbon Dioxide (22-29) mmol/L Anion Gap (12-20) BUN (9-16) mg/dL Creatinine (0.5-1.4) mg/dL Estim Creat Clear Calc Estimated GFR Random Glucose (60-115) mg/dL Lactic Acid 1.2 (0.5-2.0) mmol/L Calcium (8.4-10.2) mg/dL Total Bilirubin (0.0-1.0) mg/dL AST (5-31) U/L ALT (0-31) U/L Alkaline Phosphatase (39-117) U/L Troponin I High Sens < 3.5 (<3.5-17.0) ng/L Total Protein (6.5-8.0) g/dL Albumin (3.5-5.0) g/dL Influenza Type A (PCR) (Negative) Influenza Type B (PCR) (Negative) RSV RNA Qual (PCR) (Negative) SARS-CoV-2 RNA (RT-PCR) (Negative) Independent Interpretation I performed an independent interpretation of an: Plain X-Ray Radiology Impression Discussion of test interpretation with radiology: I have reviewed the radiologist's reading. Radiologist Impression: EXAMINATION: XR CHEST CLINICAL INFORMATION: Chest pressure, tachycardia, respiratory distress. COMPARISON: Chest radiograph 12/24/2008. TECHNIQUE: Frontal view of the chest was obtained. FINDINGS: No significant abnormality is noted involving the heart, lungs, mediastinum, bony thorax or soft tissues. XR/XR chest 1V IMPRESSION: Unremarkable examination. Prescription Management I considered prescription management with: Antiviral Patient has had symptoms for over 1 week. Outside of the Tamiflu endo. Discharge Plan Discharge Clinical Impression: Influenza Patient Disposition: Home, Self-Care Instructions: Influenza (ED) Additional Instructions: You were evaluated for upper respiratory symptoms. You tested positive for influenza. We gave you a L of fluids, 30 mg of Toradol, and 650 mg of Tylenol at 23:00. Please alternate Tylenol 650 mg every 6 hours and Motrin 600 mg every 6 hours as needed for pain management and fever control. Take Motrin at 02:00, so you can have pain management and fever control every 3 hours. Write down what time you take these medications to prevent accidental overdose. Use albuterol inhaler every 4-6 hours as needed for shortness of breath. Drink plenty of fluids. Thank you for choosing this emergency department for evaluation. Please follow-up with primary care physician as needed. Return to the emergency department for any new, concerning, or worsening symptoms. Prescriptions: No Action pyridoxine (vitamin B6) 25 mg tablet 25 mg PO TID Qty: 90 0RF prenat.vits,barby,qdk-qoni-pmvgq Tablet 1 tab PO DAILY Stand Alone Forms: Work/School Release Interventions: ED Discharge Assessment Last Done: 10/08/22 23:01 Discharge Date/Time: 10/08/22 23:02
[2022-10-08 19:24] LABS: MANUAL DIFF FLAG NO
[2022-10-08 19:27] LABS: Basophils Percent Auto 0.3 % (0-2); Eosinophils Absolute Auto 0.1 X10*3/uL (0.0-0.4); Hematocrit 36.8 % (37.0-47.0); Hemoglobin 12.5 g/dl (12.0-16.0); Imm Gran Abs Auto 0.02 X10*3/uL (0.00-0.03); Imm Gran Pct Auto 0.3 % (0.0-0.4); Lymphocytes Absolute Auto 0.5 X10*3/uL (1.2-4.9); Lymphocytes Percent Auto 9.2 % (20-40); Mean Corpuscular Hemoglobin 29.8 pg (27.0-33.0); Mean Corpuscular Volume 87.6 fL (80.0-98.0); Mean Platelet Volume 9.8 fL (9.4-12.3); Monocytes Absolute Auto 0.4 X10*3/uL (0.1-1.2); Monocytes Percent Auto 7.1 % (2-11); Neutrophils Absolute Auto 4.8 x10*3/uL (2.0-8.3); Neutrophils Percent Auto 82.1 % (45-73); Platelet Count 221 X10*3/uL (160-400); Red Cell Distribution Width 11.9 % (11.0-16.0); White Blood Count 5.8 X10*3/uL (4.8-10.8)
[2022-10-08 19:38] LABS: Lactic Acid 1.2 mmol/L (0.5-2.0)
[2022-10-08 19:53] LABS: Alanine Aminotransferase 29 U/L (0-31); Albumin Level 4.3 g/dL (3.5-5.0); Alkaline Phosphatase 86 U/L (39-117); Anion Gap 14 (12-20); Aspartate Amino Transferase 28 U/L (5-31); Bilirubin Total 0.4 mg/dL (0.0-1.0); Blood Urea Nitrogen 10 mg/dL (9-16); Calcium 9.3 mg/dL (8.4-10.2); Carbon Dioxide 25 mmol/L (22-29); Chloride 102 mmol/L (96-108); Creatinine Clr Calc Pharmacy 98.4; Estimated Glomerular Filt Rate > 60; Glucose Random 85 mg/dL (60-115); Potassium 3.9 mmol/L (3.3-5.1); Sodium 137 mmol/L (135-145); Total Protein 7.3 g/dL (6.5-8.0); Troponin-I High Sensitivity < 3.5 ng/L (<3.5-17.0)
[2022-10-08 20:05] LABS: Influenza A PCR POSITIVE (Negative); Influenza B PCR NEGATIVE (Negative); Resp Syncy Virus RNA Qual PCR NEGATIVE (Negative); SARS COV2 PCR INHOUSE NEGATIVE (Negative)
--- NOTE | 2022-10-08 20:49 | PC.NURSE ---
Pt is resting on stretcher at this time, no complaints of pain. IV fluids complete
[2022-10-08 22:24] VITALS: BP 120/84; PULSE 102; RESP 22; O2SAT 97
== END 2022-10-08 23:02 | disposition home or self-care (01) ==
PROVIDERS: Emergency Provider Emergency Medicine
DX: J10.1 Influenza due to other identified influenza virus with other respiratory manifestations (principal); R06.02 Shortness of breath; R05.9 Cough, unspecified; R50.9 Fever, unspecified; R51.9 Headache, unspecified; Z20.822 Contact with and (suspected) exposure to COVID-19
CPT/HCPCS: 0241U; 36415; 71045; 80053; 83605; 84484; 85025; 87040; 93005; 96361; 96374; 99284; J1885

== ENCOUNTER 2022-10-11 17:38 | Emergency (ER) | payer OTHER, SELFPAY ==
[2022-10-11 17:42] VITALS: BP 140/86; PULSE 102; RESP 20; TEMP 36.4; O2SAT 100; BMI 33.6
--- NOTE | 2022-10-11 17:45 | ECG_ITS ---
Test Reason : CHEST PAIN Blood Pressure : / mmHG Vent. Rate : 075 BPM Atrial Rate : 075 BPM P-R Int : 146 ms QRS Dur : 080 ms QT Int : 418 ms P-R-T Axes : 062 026 037 degrees QTc Int : 466 ms Normal sinus rhythm Normal ECG When compared with ECG of 08-OCT-2022 19:04, Vent. rate has decreased BY 45 BPM Referred By: Missael Adams Electronically Signed By:Kane Carbajal
--- NOTE | 2022-10-11 17:47 | ED.GENADULT ---
HPI - General Adult General Chief complaint: Arrhythmia/Palpitations <XAVIER Gamboa - Last Filed: 10/24/22 09:16> Stated complaint: Heart palpitations <XAVIER Gamboa - Last Filed: 10/24/22 09:16> Time Seen by Provider: 10/11/22 19:41 <XAVIER Gamboa - Last Filed: 10/24/22 09:16> Source: patient <Marcellus Gillespie MD - Last Filed: 10/11/22 22:52> Mode of arrival: ambulatory <Marcellus Gillespie MD - Last Filed: 10/11/22 22:52> Limitations: no limitations <Marcellus Gillespie MD - Last Filed: 10/11/22 22:52> History of Present Illness HPI narrative: Patient 27 years old with history of anxiety depression status post 06/14/22 comes in for palpitation and chest heaviness for last few days patient diagnosed with influenza positive for on 10/08 since then patient complaining of heaviness in the chest at palpitation no dizziness no shortness of breath no calf tenderness patient been feeling fine otherwise has poor sleep does not feel anxious no fever or chills <Marcellus Gillespie MD - Last Filed: 10/11/22 22:52> Related Data Home medications: Home Medications Medication Instructions Recorded Confirmed prenat.vits,barby,[id number] 1 tab PO DAILY 05/24/22 Previous Rx's Medication Instructions Recorded pyridoxine (vitamin B6) 25 mg 25 mg PO TID #90 tabs 05/19/22 tablet <XAVIER Gamboa - Last Filed: 10/24/22 09:16> Allergies/adverse reactions: Allergies Allergy/AdvReac Type Severity Reaction Status Date / Time No Known Allergies Allergy Verified 10/08/22 18:52 [No Known Allergies*] <XAVIER Gamboa - Last Filed: 10/24/22 09:16> Review of Systems Review of Systems: Yes all other systems are reviewed and are negative <Marcellus Gillespie MD - Last Filed: 10/11/22 22:52> PMFSH Past Medical History Medical History: Medical History ADD (attention deficit disorder) ADHD Back problem No known health problems <XAVIER Gamboa - Last Filed: 10/24/22 09:16> Social History Social History: Social History Alcohol intake: never Smoked in Last 30 Days: No Use of substances other than those prescribed or required for medical reasons: No Advance Directives: No Advance Directives Information Provided: No Patient : No <XAVIER Gamboa - Last Filed: 10/24/22 09:16> Physical Exam ED Vital Signs: Vital Signs - 24 hr 10/11/22 17:42 10/11/22 19:48 Temperature 97.6 F 97.9 F Pulse Rate 102 H 79 Respiratory Rate 20 16 Blood Pressure 140/86 H 127/80 Pulse Oximetry 100 100 Oxygen Delivery Method Room Air Room Air BMI result Body Mass Index 33.6 <XAVIER Gamboa - Last Filed: 10/24/22 09:16> Vital Signs - 24 hr 10/11/22 17:42 10/11/22 19:48 Temperature 97.6 F 97.9 F Pulse Rate 102 H 79 Respiratory Rate 20 16 Blood Pressure 140/86 H 127/80 Pulse Oximetry 100 100 Oxygen Delivery Method Room Air Room Air BMI result Body Mass Index 33.6 <Marcellus Gillespie MD - Last Filed: 10/11/22 22:52> Appearance: Alert. Oriented X3. No acute distress. Eyes: No pallor or icterus ENT: Pharynx normal. Oral Mucosa moist Neck: Normal inspection. Neck supple. CVS: Normal heart rate and rhythm. Pulses normal. Respiratory: No respiratory distress. Equal air entry bilateral, no wheezing/rales/rhonchi Abdomen: Soft and nontender. Bowel sounds are present, no mass palpable, no CVA tenderness Skin: Skin warm and dry. Normal skin color. Normal skin turgor. Extremities: No lower extremity edema. No calf tenderness Neuro: Oriented X 3. No motor deficit. <Marcellus Gillespie MD - Last Filed: 10/11/22 22:52> Course Course Course Narrative: RME; patient was recently positive for influenza presents to ED for heart palpitations. Labs, EKG, and chest x-ray ordered. Patient well appearing <XAVIER Gamboa - Last Filed: 10/24/22 09:16> Medical Decision Making Medical Decision Making MDM Narrative: Patient has stable labs no tachycardia noticed in the ER heart rate increased to 90s on standing without any dizziness sinus tachycardia Gilma sign negative for DVT no shortness of breath noticed will discharge patient home advised to follow a specific <Marcellus Gillespie MD - Last Filed: 10/11/22 22:52> Lab Data [facility] Lab Attestation statement: I reviewed the patient's lab results. <Marcellus Gillespie MD - Last Filed: 10/11/22 22:52> Result Diagrams: 10/11/22 18:08 10/11/22 18:08 <XAVIER Gamboa - Last Filed: 10/24/22 09:16> Labs: Lab Results 10/11/22 10/11/22 10/11/22 Range/Units 18:08 18:08 18:08 WBC 5.7 (4.8-10.8) X10*3/uL RBC 4.27 (4.20-5.50) X10*6/uL Hgb 12.7 (12.0-16.0) g/dl Hct 36.6 L (37.0-47.0) % MCV 85.7 (80.0-98.0) fL MCH 29.7 (27.0-33.0) pg MCHC 34.7 (31.0-35.0) g/dl RDW 11.8 (11.0-16.0) % Plt Count 218 (160-400) X10*3/uL MPV 9.7 (9.4-12.3) fL Immature Gran % (Auto) 0.7 H (0.0-0.4) % Neut % (Auto) 48.3 (45-73) % Lymph % (Auto) 43.7 H (20-40) % [place] % (Auto) 6.2 (2-11) % Eos % (Auto) 0.9 (0-4) % Baso % (Auto) 0.2 (0-2) % Lymph # (Auto) 2.5 (1.2-4.9) X10*3/uL [place] # (Auto) 0.4 (0.1-1.2) X10*3/uL Eos # (Auto) 0.1 (0.0-0.4) X10*3/uL Baso # (Auto) 0.0 (0.0-0.2) X10*3/uL Abs Immat Gran (auto) 0.04 H (0.00-0.03) X10*3/uL Absolute Neuts (auto) 2.7 (2.0-8.3) x10*3/uL Absolute Nucleated RBC 0.000 (0.0-0.012) X10*3/uL Nucleated RBC % (auto) 0.0 (0.0-0.2) /100WBC PT (10.0-13.1) SEC INR (0.9-1.1) APTT (26.0-36.4) SEC D-Dimer High Sensitivty NG/ML Sodium 140 (135-145) mmol/L Potassium 3.5 (3.3-5.1) mmol/L Chloride 104 (96-108) mmol/L Carbon Dioxide 26 (22-29) mmol/L Anion Gap 14 (12-20) BUN 8 L (9-16) mg/dL Creatinine 0.67 (0.5-1.4) mg/dL Estim Creat Clear Calc 126.3 Estimated GFR > 60 Random Glucose 87 (60-115) mg/dL Calcium 8.8 (8.4-10.2) mg/dL Total Bilirubin 0.3 (0.0-1.0) mg/dL AST 23 (5-31) U/L ALT 28 (0-31) U/L Alkaline Phosphatase 70 (39-117) U/L Troponin I High Sens < 3.5 (<3.5-17.0) ng/L Total Protein 6.9 (6.5-8.0) g/dL Albumin 4.2 (3.5-5.0) g/dL TSH 1.43 (0.32-4.0) uIU/mL 10/11/22 Range/Units 18:08 WBC (4.8-10.8) X10*3/uL RBC (4.20-5.50) X10*6/uL Hgb (12.0-16.0) g/dl Hct (37.0-47.0) % MCV (80.0-98.0) fL MCH (27.0-33.0) pg MCHC (31.0-35.0) g/dl RDW (11.0-16.0) % Plt Count (160-400) X10*3/uL MPV (9.4-12.3) fL Immature Gran % (Auto) (0.0-0.4) % Neut % (Auto) (45-73) % Lymph % (Auto) (20-40) % [place] % (Auto) (2-11) % Eos % (Auto) (0-4) % Baso % (Auto) (0-2) % Lymph # (Auto) (1.2-4.9) X10*3/uL [place] # (Auto) (0.1-1.2) X10*3/uL Eos # (Auto) (0.0-0.4) X10*3/uL Baso # (Auto) (0.0-0.2) X10*3/uL Abs Immat Gran (auto) (0.00-0.03) X10*3/uL Absolute Neuts (auto) (2.0-8.3) x10*3/uL Absolute Nucleated RBC (0.0-0.012) X10*3/uL Nucleated RBC % (auto) (0.0-0.2) /100WBC PT 11.9 (10.0-13.1) SEC INR 1.0 (0.9-1.1) APTT 34.1 (26.0-36.4) SEC D-Dimer High Sensitivty 275 NG/ML Sodium (135-145) mmol/L Potassium (3.3-5.1) mmol/L Chloride (96-108) mmol/L Carbon Dioxide (22-29) mmol/L Anion Gap (12-20) BUN (9-16) mg/dL Creatinine (0.5-1.4) mg/dL Estim Creat Clear Calc Estimated GFR Random Glucose (60-115) mg/dL Calcium (8.4-10.2) mg/dL Total Bilirubin (0.0-1.0) mg/dL AST (5-31) U/L ALT (0-31) U/L Alkaline Phosphatase (39-117) U/L Troponin I High Sens (<3.5-17.0) ng/L Total Protein (6.5-8.0) g/dL Albumin (3.5-5.0) g/dL TSH (0.32-4.0) uIU/mL <XAVIER Gamboa - Last Filed: 10/24/22 09:16> Lab Results 10/11/22 10/11/22 10/11/22 Range/Units 18:08 18:08 18:08 WBC 5.7 (4.8-10.8) X10*3/uL RBC 4.27 (4.20-5.50) X10*6/uL Hgb 12.7 (12.0-16.0) g/dl Hct 36.6 L (37.0-47.0) % MCV 85.7 (80.0-98.0) fL MCH 29.7 (27.0-33.0) pg MCHC 34.7 (31.0-35.0) g/dl RDW 11.8 (11.0-16.0) % Plt Count 218 (160-400) X10*3/uL MPV 9.7 (9.4-12.3) fL Immature Gran % (Auto) 0.7 H (0.0-0.4) % Neut % (Auto) 48.3 (45-73) % Lymph % (Auto) 43.7 H (20-40) % [place] % (Auto) 6.2 (2-11) % Eos % (Auto) 0.9 (0-4) % Baso % (Auto) 0.2 (0-2) % Lymph # (Auto) 2.5 (1.2-4.9) X10*3/uL [place] # (Auto) 0.4 (0.1-1.2) X10*3/uL Eos # (Auto) 0.1 (0.0-0.4) X10*3/uL Baso # (Auto) 0.0 (0.0-0.2) X10*3/uL Abs Immat Gran (auto) 0.04 H (0.00-0.03) X10*3/uL Absolute Neuts (auto) 2.7 (2.0-8.3) x10*3/uL Absolute Nucleated RBC 0.000 (0.0-0.012) X10*3/uL Nucleated RBC % (auto) 0.0 (0.0-0.2) /100WBC PT (10.0-13.1) SEC INR (0.9-1.1) APTT (26.0-36.4) SEC D-Dimer High Sensitivty NG/ML Sodium 140 (135-145) mmol/L Potassium 3.5 (3.3-5.1) mmol/L Chloride 104 (96-108) mmol/L Carbon Dioxide 26 (22-29) mmol/L Anion Gap 14 (12-20) BUN 8 L (9-16) mg/dL Creatinine 0.67 (0.5-1.4) mg/dL Estim Creat Clear Calc 126.3 Estimated GFR > 60 Random Glucose 87 (60-115) mg/dL Calcium 8.8 (8.4-10.2) mg/dL Total Bilirubin 0.3 (0.0-1.0) mg/dL AST 23 (5-31) U/L ALT 28 (0-31) U/L Alkaline Phosphatase 70 (39-117) U/L Troponin I High Sens < 3.5 (<3.5-17.0) ng/L Total Protein 6.9 (6.5-8.0) g/dL Albumin 4.2 (3.5-5.0) g/dL TSH 1.43 (0.32-4.0) uIU/mL 10/11/22 Range/Units 18:08 WBC (4.8-10.8) X10*3/uL RBC (4.20-5.50) X10*6/uL Hgb (12.0-16.0) g/dl Hct (37.0-47.0) % MCV (80.0-98.0) fL MCH (27.0-33.0) pg MCHC (31.0-35.0) g/dl RDW (11.0-16.0) % Plt Count (160-400) X10*3/uL MPV (9.4-12.3) fL Immature Gran % (Auto) (0.0-0.4) % Neut % (Auto) (45-73) % Lymph % (Auto) (20-40) % [place] % (Auto) (2-11) % Eos % (Auto) (0-4) % Baso % (Auto) (0-2) % Lymph # (Auto) (1.2-4.9) X10*3/uL [place] # (Auto) (0.1-1.2) X10*3/uL Eos # (Auto) (0.0-0.4) X10*3/uL Baso # (Auto) (0.0-0.2) X10*3/uL Abs Immat Gran (auto) (0.00-0.03) X10*3/uL Absolute Neuts (auto) (2.0-8.3) x10*3/uL Absolute Nucleated RBC (0.0-0.012) X10*3/uL Nucleated RBC % (auto) (0.0-0.2) /100WBC PT 11.9 (10.0-13.1) SEC INR 1.0 (0.9-1.1) APTT 34.1 (26.0-36.4) SEC D-Dimer High Sensitivty 275 NG/ML Sodium (135-145) mmol/L Potassium (3.3-5.1) mmol/L Chloride (96-108) mmol/L Carbon Dioxide (22-29) mmol/L Anion Gap (12-20) BUN (9-16) mg/dL Creatinine (0.5-1.4) mg/dL Estim Creat Clear Calc Estimated GFR Random Glucose (60-115) mg/dL Calcium (8.4-10.2) mg/dL Total Bilirubin (0.0-1.0) mg/dL AST (5-31) U/L ALT (0-31) U/L Alkaline Phosphatase (39-117) U/L Troponin I High Sens (<3.5-17.0) ng/L Total Protein (6.5-8.0) g/dL Albumin (3.5-5.0) g/dL TSH (0.32-4.0) uIU/mL <Marcellus Gillespie MD - Last Filed: 10/11/22 22:52> Independent Interpretation I performed an independent interpretation of an: EKG <Marcellus Gillespie MD - Last Filed: 10/11/22 22:52> Interpretation: Normal sinus rhythm heart rate 75 beats per minute normal interval normal axis no acute ST change and no acute ischemia <Marcellus Gillespie MD - Last Filed: 10/11/22 22:52> Discharge Plan Discharge Clinical Impression: Palpitations, Anxiety <XAVIER Gamboa - Last Filed: 10/24/22 09:16> Patient Disposition: Home, Self-Care <XAVIER Gamboa - Last Filed: 10/24/22 09:16> Instructions: Heart Palpitations (DC), Anxiety (ED) <XAVIER Gamboa - Last Filed: 10/24/22 09:16> Additional Instructions: Drink plenty of fluids Report to the ER if dizziness/passing out <XAVIER Gamboa - Last Filed: 10/24/22 09:16> Prescriptions: No Action pyridoxine (vitamin B6) 25 mg tablet 25 mg PO TID Qty: 90 0RF prenat.vits,barby,[id number] Tablet 1 tab PO DAILY <XAVIER Gamboa - Last Filed: 10/24/22 09:16> Interventions: ED Discharge Assessment Last Done: 10/11/22 21:14 <XAVIER Gamboa - Last Filed: 10/24/22 09:16> Discharge Date/Time: 10/11/22 21:16 <XAVIER Gamboa - Last Filed: 10/24/22 09:16>
[2022-10-11 18:13] LABS: MANUAL DIFF FLAG NO
[2022-10-11 18:21] LABS: Prothrombin Time 11.9 SEC (10.0-13.1)
[2022-10-11 18:24] LABS: Partial Thromboplastin Time 34.1 SEC (26.0-36.4)
[2022-10-11 18:29] LABS: Basophils Percent Auto 0.2 % (0-2); Eosinophils Absolute Auto 0.1 X10*3/uL (0.0-0.4); Eosinophils Percent Auto 0.9 % (0-4); Hematocrit 36.6 % (37.0-47.0); Hemoglobin 12.7 g/dl (12.0-16.0); Imm Gran Abs Auto 0.04 X10*3/uL (0.00-0.03); Imm Gran Pct Auto 0.7 % (0.0-0.4); Lymphocytes Absolute Auto 2.5 X10*3/uL (1.2-4.9); Lymphocytes Percent Auto 43.7 % (20-40); Mean Corpuscular HGB Conc 34.7 g/dl (31.0-35.0); Mean Corpuscular Hemoglobin 29.7 pg (27.0-33.0); Mean Corpuscular Volume 85.7 fL (80.0-98.0); Mean Platelet Volume 9.7 fL (9.4-12.3); Monocytes Absolute Auto 0.4 X10*3/uL (0.1-1.2); Monocytes Percent Auto 6.2 % (2-11); Neutrophils Absolute Auto 2.7 x10*3/uL (2.0-8.3); Neutrophils Percent Auto 48.3 % (45-73); Platelet Count 218 X10*3/uL (160-400); Red Blood Count 4.27 X10*6/uL (4.20-5.50); Red Cell Distribution Width 11.8 % (11.0-16.0); White Blood Count 5.7 X10*3/uL (4.8-10.8)
[2022-10-11 18:40] LABS: Troponin-I High Sensitivity < 3.5 ng/L (<3.5-17.0)
[2022-10-11 18:51] LABS: Alanine Aminotransferase 28 U/L (0-31); Albumin Level 4.2 g/dL (3.5-5.0); Alkaline Phosphatase 70 U/L (39-117); Anion Gap 14 (12-20); Aspartate Amino Transferase 23 U/L (5-31); Bilirubin Total 0.3 mg/dL (0.0-1.0); Blood Urea Nitrogen 8 mg/dL (9-16); Calcium 8.8 mg/dL (8.4-10.2); Carbon Dioxide 26 mmol/L (22-29); Chloride 104 mmol/L (96-108); Creatinine Clr Calc Pharmacy 126.3; Estimated Glomerular Filt Rate > 60; Glucose Random 87 mg/dL (60-115); Potassium 3.5 mmol/L (3.3-5.1); Sodium 140 mmol/L (135-145); TSH reflex Free T4 1.43 uIU/mL (0.32-4.0); Total Protein 6.9 g/dL (6.5-8.0)
[2022-10-11 19:48] VITALS: BP 127/80; PULSE 79; RESP 16; TEMP 36.6; O2SAT 100
[2022-10-11 19:54] VITALS: PULSE 70
[2022-10-11 20:28] LABS: D Dimer High Sensitivity 275 NG/ML
== END 2022-10-11 21:16 | disposition home or self-care (01) ==
PROVIDERS: Physician Assistant; Emergency Provider Internal Medicine
DX: R00.2 Palpitations (principal); F41.9 Anxiety disorder, unspecified
CPT/HCPCS: 36415; 80053; 84443; 84484; 85025; 85379; 85610; 85730; 93005; 99283; 99284

== ENCOUNTER 2023-09-26 14:03 | Outpatient (REF) | payer OTHER, SELFPAY ==
[2023-09-26 16:19] LABS: Estimated Average Glucose 103 mg/dL; Hemoglobin A1c % 5.2 % (<6.0)
[2023-09-26 16:31] LABS: Cholesterol 156 mg/dL (<200); HDL Cholesterol 44 mg/dL (>40); LDL Cholesterol Calculated 86 mg/dL (<100); Triglycerides 133 mg/dL (<150)
== END 2023-09-26 14:04 | disposition home or self-care (01) ==
LOC: HO.HHCL 14:03
PROVIDERS: Visit Provider General Practice
DX: E66.3 Overweight (principal); R53.82 Chronic fatigue, unspecified
CPT/HCPCS: 36415; 80061; 83036; 84443

== ENCOUNTER 2024-06-15 15:10 | Outpatient (REF) | payer OTHER, SELFPAY ==
[2024-06-15 16:45] LABS: Estimated Average Glucose 100 mg/dL; Hemoglobin A1c % 5.1 % (<6.0)
[2024-06-15 16:53] LABS: Alanine Aminotransferase 23 U/L (0-31); Albumin Level 4.3 g/dL (3.5-5.0); Alkaline Phosphatase 95 U/L (39-117); Anion Gap 13 (12-20); Aspartate Amino Transferase 24 U/L (5-31); Bilirubin Total 0.4 mg/dL (0.0-1.0); Blood Urea Nitrogen 14 mg/dL (9-16); Calcium 9.8 mg/dL (8.4-10.2); Carbon Dioxide 24 mmol/L (22-29); Chloride 106 mmol/L (96-108); Estimated Glomerular Filt Rate > 60; Glucose Random 81 mg/dL (60-115); Potassium 4.3 mmol/L (3.3-5.1); Sodium 139 mmol/L (135-145); Total Protein 7.7 g/dL (6.5-8.0)
[2024-06-15 17:16] LABS: TSH reflex Free T4 0.02 uIU/mL (0.32-4.0)
[2024-06-15 17:52] LABS: Free T4 (Free Thyroxine) 0.88 ng/dL (0.71-1.85)
== END 2024-06-15 15:11 | disposition home or self-care (01) ==
LOC: HO.HHCL 15:10
PROVIDERS: Visit Provider General Practice
DX: Z13.1 Encounter for screening for diabetes mellitus (principal); E66.9 Obesity, unspecified
CPT/HCPCS: 36415; 80053; 83036; 84439; 84443

== ENCOUNTER 2024-07-20 13:41 | Outpatient (REF) | payer OTHER, SELFPAY ==
[2024-07-20 18:08] LABS: TSH reflex Free T4 0.71 uIU/mL (0.32-4.0)
[2024-07-23 20:29] LABS: Triiodothyronine T3 Total 131 ng/dL (76-181)
== END 2024-07-20 13:42 | disposition home or self-care (01) ==
LOC: HO.HHCL 13:41
PROVIDERS: Visit Provider General Practice
DX: E05.90 Thyrotoxicosis, unspecified without thyrotoxic crisis or storm (principal)
CPT/HCPCS: 36415; 84443; 84480

== ENCOUNTER 2024-10-30 13:09 | Outpatient (REF) | payer OTHER, SELFPAY ==
[2024-10-30 16:17] LABS: Bacterial Vaginosis PCR NEGATIVE (Negative); Candida Group PCR NOT DETECTED (Not Detect); Candida glab krusei PCR NOT DETECTED (Not Detect); Trichomonas vaginalis PCR NOT DETECTED (Not Detect)
[2024-10-31 07:05] LABS: HPV 16,18/45 See PAP report
== END 2024-10-30 13:10 | disposition home or self-care (01) ==
LOC: HO.HHCLNP 13:09
PROVIDERS: Visit Provider General Practice
DX: Z12.4 Encounter for screening for malignant neoplasm of cervix (principal); Z11.51 Encounter for screening for human papillomavirus (HPV)
CPT/HCPCS: 81515; 87626; 88175

== ENCOUNTER 2025-03-06 16:28 | Outpatient (REF) | payer OTHER, SELFPAY ==
--- OUTSIDE RECORDS SUMMARY | 2025-03-06 16:30 | XMS_ITS | Clinical Summary ---
Author Organization [employer] Address 75 [facility] 7t [place] [address] Care Team Providers Care Mailroom Clerk Name Role Phone Anabell Alcantara MD Primary Care Provider [phone] Allergies No known active allergies Medications sertraline (Zoloft) 25 MG tablet TAKE 1 TABLET BY MOUTH ONCE DAILY WITH 50mg TABLET 07/08/20 23 Active Calcium Polycarbophil (fiber) 625 MG tablet Take 1 tablet (625 mg) by mouth in the morning. 90 tablet 3 08/05/20 23 Active cyclobenzaprine (Flexeril) 5 MG tablet Take 5 mg by mouth if needed in the morning, at noon, and at bedtime for muscle spasms. 08/06/20 24 Active meloxicam (Mobic) 7.5 MG tablet TAKE 1 TABLET BY MOUTH ONCE DAILY. DO NOT TAKE WITH OTHER NSAIDs 08/06/20 24 Active topiramate (Topamax) 25 MG tablet Take 1 tablet (25 mg) by mouth Once per day. 90 tablet 3 10/30/19 25 026 Active Diclofenac Sodium 1 % gelIndications:Pl alvaro fasciitis, bilateral Apply thin layer by topical route (quantity as directed on package insert) to affected area of pain 3 times daily as needed. 50 g 3 12/14/19 25 Active Boric Acid Vaginal 600 MG suppository Insert 1 suppository (600 mg) into the vagina if needed each day (change in vaginal odor or discharge). 30 suppository 3 01/31/20 25 Active Vitamin D High Potency 25 MCG (1000 UT) capsule Take 1 capsule (25 mcg) by mouth Once per day. 90 capsule 3 01/31/20 25 Active Vit-Fe Fumarate-FA ( Vitamins) 28-0.8 MG tablet Take 1 tablet by mouth Once per day. 90 tablet 3 01/31/20 Active Active Problems Problem Noted Date Diagnosed Date Mild depression 12/14/2024 Plantar fasciitis, bilateral 12/14/2024 Subclinical hyperthyroidism 06/20/2024 Assessment & Plan (06/20/2024 3:29 PM EDT): Dx on labs today, will repeat in 6 weeks if still with same pattern of suppressed TSH and normal T4 will obtain thyroid radioactive iodine uptake scan Chronic bilateral low back pain without sciatica 06/20/2024 Skin tag 06/20/2024 Obstructive sleep apnea 08/08/2023 Assessment & Plan (11/29/2023 8:41 PM EST): KIRTI and started AutoCPAP 5-15cm, H20 in Oct 2023 Per [facility] PSG 05/16/23 Compliance data shows that she is using it every night for more than 4 hours Experiencing benefit in terms of decreased daytime sleepiness F/u in 6 months for repeat compliance data Assessment & Plan (08/08/2023 1:04 PM EDT): KIRTI with recommendation to start AutoCPAP 5-15cm, H20 with compliance data followed Per [facility] PSG 05/16/23 Script will be generated and sent to [facility] [place] or [facility] depending on insurance coverage F/u I 6 months for initial compliance data Daytime somnolence 02/16/2023 Chronic fatigue 02/08/2023 Assessment & Plan (02/08/2023 1:24 PM EDT): Lab workup has not shown a cause for sleepiness Pt in bed for adequate amount of time Increase exercise Avoid caffeine Will order sleep study to evaluate for sleep apnea, or other movement disorder of sleep. Pt prefers in hospital study Folliculitis 12/20/2022 Resolved Problems Problem Noted Date Diagnosed Date Resolved Date Overweight 02/12/2015 05/06/2023 Assessment & Plan (12/27/2022 8:10 AM EDT): Lipids and A1C ordered Borderline intellectual disability 09/25/2012 12/14/2024 Schizophrenia 07/06/2012 06/20/2024 Assessment & Plan (01/05/2023 9:41 AM EDT): Adjusting medications with her Joni prescriber stable Encounters Date Type Department Care Team Description 03/06/2025 4:00 PM EDT Office Visit [facility] [address] [place] [address] Anabell Alcantara MD Other fatigue (Primary Dx) 03/06/2025 Travel 03/05/2025 Telephone [facility] [address] [place] [address] Anabell Alcantara MD chart prep 02/13/2025 Orders Only [facility] [address] [place] [address] More Zheng 02/09/2025 Refill [facility] [address] [place] [address] Anabell Alcantara MD 01/29/2025 Refill [facility] [address] [place] [address] Anabell Alcantara MD 01/29/2025 Refill [facility] [address] [place] [address] Anabell Alcantara MD 01/29/2025 Refill [facility] [address] [place] [address] Duane Ramos MD 12/14/2024 11:15 AM EST Office Visit [facility] [address] [place] [address] Anabell Alcantara MD Obstructive sleep apnea (Primary Dx); Encounter for immunization; Mild depression; Plantar fasciitis, bilateral 12/14/2024 Refill [facility] [address] [place] [address] Anabell Alcantara MD 12/14/2024 Travel from Last 3 Months Immunizations Immunization Administration Dates Next Due DTaP 07/03/1999, 6,1995,05/17,1995 HPV, Quadrivalent 08/01/2007,03/29/2007,01/27/20 07 Hep B, Adolescent or Pediatric 1995,1994,1995 Hep B, adult 03/02/2023,01/20/2023 Hib (HbOC) 05/17/1996, 5,1995,03/17 IPV 1995,1995,1995 Influenza injectable quadriv alent IIV4 with preservative 11/11/2017,07/27/2016 Influenza injectable quadriv alent preservative free 08/05/2023,09/03/2021 Influenza, Split (incl. kapil fied surface antigen) 07/20/2013,07/06/2012 Influenza, seasonal, injecta ble, preservative free 12/14/2024 MMR 07/03/1999,05/17/1996 Meningococcal MCV4P ACYW-135 01/26/2007 Tdap 11/25/2019, 8,02/14/2014,01/26 Social History Tobacco Use Types Packs/Day Years Used Date Smoking Tobacco: Never Smokeless Tobacco: Never Tobacco Cessation:Counseling Given: Not Answered Alcohol Use Standard Drinks/Week Comments Never 0 (1 standard drink = 0.6 oz pur e alcohol) Alcohol Answer Date Recorded How often do you have a drink containing alcohol ? 0 12/14/2024 How many drinks containing a lcohol do you have on a typical day when you are drinking? 0 12/14/2024 How often do you have six or more drinks on one occasion? 0 12/14/2024 Depression Answer Date Recorded Patient Health Questionnaire-9 Score 8 12/14/2024 Patient Health Questionnaire-9 Score 8 12/14/2024 Last PHQ-9: Questionnaire Data Not on file 0 12/14/2024 Housing Stability Answer Date Recorded What is your housing situation today? I have hazel myers 11/30/[address] you li ve. Do you have problems with any of the following? None of the above 11/30/2024 Food Insecurity Answer Date Recorded Within the past 12 months, y ou worried that your food would run out before you got money to buy more: Never True 11/30/2024 Within the past 12 months,th e food you bought just didn't last and you didn't have enough money to get more: Never True Transportation Answer Date Recorded In the past 12 months, has l ack of transportation kept you from medical appts, meetings, work or from getting things needed for daily living? No 11/30/2024 Intimate Partner Violence Answer Date R ecorded Within the last year, have y ou been afraid of your partner or ex-partner? 2 03/06/2025 Within the last year, have y ou been humiliated or emotionally abused in other ways by your partner or ex-partner? 2 Within the last year, have y ou been kicked, hit, slapped, or otherwise physically hurt by your partner or ex-partner? 2 03/06/2025 Within the last year, have y ou been raped or forced to have any kind of sexual activity by your partner or ex-partner? 2 03/06/2025 Utilities Answer Date Recorded In the past 12 months, has t he electric, gas, oil or water company threatened to shut off services in your home? No 11/30/2024 Depression Answer Date Recorded Patient Health Questionnaire-2 Score 1 12/14/2024 Internet Access Answer Date Recorded Internet Access Q1 Yes 11/30/2024 Internet Access Q2 Not on file 11/30/2024 Comments No Intention Date Recorded No desire to become (finding) 0 12/14/2024 Sex and Gender Information Value Date Recorded Sex Assigned at Female 08/16/2022 10:15 AM EDT Legal Sex Female 10:15 AM EDT Gender Identity Female 08/16/2022 10:15 AM EDT Sexual Orientation Straight 08/16/2022 10 :15 AM EDT Last Filed Vital Signs Vital Sign Reading Time Taken Comments Blood Pressure 119/70 03/06/2025 4:05 PM EDT Pulse 76 03/06/2025 4:05 PM EDT Temperature 36.3 ??C (97.3 ??F) 03/06/2025 4:05 PM ED T Respiratory Rate 16 03/06/2025 4:05 PM EDT Oxygen Saturation 100% 03/06/2025 4:05 PM EDT Inhaled Oxygen Concentration - - Weight 86.8 kg (191 lb 6 oz) 03/06/2025 4:05 PM EDT Height 157.5 cm (5' 2 ) 03/06/2025 4:05 PM EDT Body Mass Index 35 03/06/2025 4:05 PM EDT Plan of Treatment Health Maintenance Due Date Last Done Comments Dental Oral Exam 1995 Dental Prophylaxis 1995 Dental X-Ray: Bitewings 1995 IPV Vaccines (4 of 4 - 4-dose series) 1999 1995, 1995, 1995 Hepatitis C Screening 2013 COVID-19 Vaccine ( season) 2024 SDOH Screening 11/30/2025 11/30/2024 Alcohol/Substance Use Screening 12/14/2025 12/14/2024 Depression Screening 12/14/2025 12/14/2024, 12/14/19 Disability Screening 12/14/2025 12/14/2024 Family Planning (PISQ) 12/14/2025 12/14/2024 Tobacco Screening 12/14/2025 12/14/2024 Dental X-Ray: Full Mouth 11/11/2026 11/10/2023, 12/16 Cervical Cancer Screening 10/30/2027 Pap Smear 10/30/2027 10/30/2024, 09/07/2021 Lipid Panel 09/26/2028 09/26/2023, 09/28/2021 HPV/Cotest 10/30/2029 10/30/2024 DTaP/Tdap/Td Vaccines (10 - Td or Tdap) 11/25/2029 11/25/2019, 12/09/2017, 02/14/2014, Additional history exists Zoster Vaccines (1 of 2) 2045 RSV Patients and Patients Aged 60 years or older (1 - 1-dose 75+ series) 2070 HIB Vaccines Completed 05/17/1996, 11/0 10/1994, 1995, Additional history exists Meningococcal Vaccine Aged Out 01/26/2007 No paco duane eligible based on patient's age to complete this topic HPV Vaccines Completed 08/01/2007, 03/17, 01/26/2007 HIV Screening Completed 12/24/2022 Hepatitis B Vaccines Completed 03/02/2023, 01/20/2023, 1995, Additional history exists Influenza Vaccine Completed 12/14/2024, , 09/03/2021, Additional history exists Hepatitis A Vaccines Aged Out No long er eligible based on patient's age to complete this topic Meningococcal B Vaccine Aged Out No l onger eligible based on patient's age to complete this topic Pneumococcal Vaccine: Pediatrics (0 to 5 Years) and At-Risk Patients (6 to 49) Years) Aged Out No longer eligible based on patient's age to complete this topic RSV under 20 months Aged Out No longe r eligible based on patient's age to complete this topic Rotavirus Vaccines Aged Out No longer eligible based on patient's age to complete this topic Procedures Procedure Name Priority Date/Time Associated Diagnosis Comments AMB REFERRAL TO SLEEP MEDICINE Routine 12/31/2024 Obstructive sleep apnea HPV MRNA E6/E7 REFLEX TO HPV 16, 18/45 Routine 10/30/2024 12:00 AM EST PAP SMEAR Routine 10/30/2024 12:00 AM EST PANORAMIC RADIOGRAPHIC IMAGE Routine 11/10/2023 3:30 PM EST LIPID PANEL, STANDARD Routine 09/26/2023 2:07 PM EST Overweight HIV 1 RNA, QUANTITATIVE REAL TIME PCR Routine 12/24/2022 2:10 PM EST Routine screening for STI (sexually transmitted infection) from Last 3 Months or Most Recently Relevant to Health Maintenance Results * Referral to Sleep Medicine (12/31/2024) Anabell Alcantara MD OUTPATIENT REFERRAL ORDERABLES Final Result * HPV mRNA E6/E7 w/Reflex to HPV Genotypes 16, 18/45 (10/30/2024 12:00 AM EST) Historical Provider LAB CYTOLOGY ORDERABLES F inal Result * Pap Smear (10/30/2024 12:00 AM EST) 10/30/2024 10/31/2024 6:2 0 AM EST Narrative [facility] - 11/06/2024 2:17 PM EST ----- ------- Name: Sweta Sanderson ? Age/Sex: 29/F ? : 1995 Unit#: [id number] ?? Attend Dr: Anabell Alcantara ?Re10/30/24 ?Status: DEP REF ? Location: HO.HHCLNP ? Disch: ? ----- ------- SPEC : [id number] ?RECD: 10/31/24 ? STATUS: ??SOUT ? REQ NUM: [id number] ? MIHAI: 10/30/24- ? SUBM DR: Anabell Alcantara ? ENTERED: ??10/31/24 ?SP TYPE: Pap Smr ?OTHR DR: ? ORDERED: ??Pap Smear ? Interpretation ?? Satisfactory for evaluation. ?? Negative for intraepithelial lesion or malignancy. ?? Mild inflammation. ? HPV High Risk: ??Negative ? HPV Genotyping 16: ??Negative ?? HPV Genotyping 18: ??Negative ?Clinical Information LMP:10/17/24 Previous PAP test: Other surgery: Other history: ? Material Received ?? ThinPrep-Cervical ----- ------- Signed (signature on file) TAVON Gallagher (ASCP) 11/06/24 1417 ? ----- ------- ? END OF REPORT ? us Anabell Alcantara MD LAB CYTOLOGY ORDERABLES Final Result [facility] [address] [place] [address] [phone] * Lipid Panel, Standard (09/26/2023 2:07 PM EST) Triglycerides 133 <150 mg/dL [facility] Comment:Desirable Triglyceri de: less than 150 mg/dLBorderline High Triglyceride 150-199 mg/dLHigh Triglyceride: 200-499 mg/dLVery High Triglyceride: greater than or equal to 5OO mg/dL Cholesterol 156 <200 mg/dL [facility] Comment:Desirable Cholestero l: less than 200 mg/dLBorderline High Cholesterol: 200-239 mg/dLHigh Cholesterol: greater than 239 mg/dL LDL Cholesterol Calculated 86 <100 mg/dL [facility] Comment:Desirable LDL: less than 100 mg/dLNear Optimal/Above Optimal LDL: 110- 129 mg/dLBorderline High LDL: 130-159 mg/dLHigh LDL: 160-189 mg/dLVery High LDL: greater than or equal to 190 mg/dL HDL Cholesterol 44 >40 mg/dL [facility] Comment:Desirable HDL: great er than 40 mg/dL Note: This HDL assay may give artificially low results in patients with liver disease. Blood Venous blood specimen / Unknown 09/26/2023 2:07 PM EST 09/26/2023 3:58 PM EST us Anabell Alcantara MD LAB BLOOD ORDERABLES Final Res ult [facility] [address] [place] [address] [phone] * HIV-1 RNA, Quantitative, Real-Time PCR (12/24/2022 2:10 PM EST) HIV 1 RNA, QN PCR NOT DETECTED NOT DETECTED copies/mL [employer] [place] [facility]ude HIV 1 RNA, QN PCR NOT DETECTED NOT DETECTED Log copies/mL [facility] [place] [employer] Comment: This test was performed using Real-Time Polymerase Chain Reaction. Reportable Range: 20 copies/mL to 10,000,000 copies/mL (1.30 log copies/mL to 7.00 log copies/mL). Blood Venous blood specimen / Unknown 12/24/2022 2:10 PM EST 12/24/2022 2:11 PM EST Narrative [facility] - 12/27/2022 11:57 AM EDT FASTING:NO FASTING: NO us Anabell Alcantara MD LAB BLOOD ORDERABLES Final Res ult [facility] [address] [place] [address] [employer] [facility] [address], ([address]) [place] [address] from Last 3 Months or Most Recently Relevant to Health Maintenance Insurance [facility] < [address] [facility] Care Teams Mailroom Clerk Relationship Specialty Start Date End Date Anabell Alcantara MD [address] [place] [phone] PCP - General Family Medicine 06/16/22
--- OUTSIDE RECORDS SUMMARY | 2025-03-06 16:30 | XMS_ITS | Encounter Summary ---
Author Organization [employer] Address [address] [facility] 7t [place] [address] Care Team Providers Care Drain Tile Press Operator Name Role Phone Anabell Alcantara MD Primary Care Provider [phone] Reason for Visit * Reason Onset Date Comments Med Refill 10/30/2024 Encounter Details Date Type Department Care Team ([facility] st Contact Info) Description 10/30/2024 Refill [facility] [address] [place], [place] [phone] Anabell Alcantara MD [address] [place], [place] [phone] Social History Tobacco Use Types Packs/Day Years Used Date Smoking Tobacco: Never Smokeless Tobacco: Never Alcohol Use Standard Drinks/Week Comments Never 0 (1 standard drink = 0.6 oz pur e alcohol) Depression Answer Date Recorded Patient Health Questionnaire-9 Score 0 08/05/2023 Patient Health Questionnaire-9 Score 0 08/05/2023 Last PHQ-9: Questionnaire Data Not on file 1 Housing Stability Answer Date Recorded What is your housing situation today? I have hazel myres 08/05/[address] you li ve. Do you have problems with any of the following? None of the above 08/05/2023 Food Insecurity Answer Date Recorded Within the past 12 months, y ou worried that your food would run out before you got money to buy more: Never True 08/05/2023 Within the past 12 months,th e food you bought just didn't last and you didn't have enough money to get more: Never True Transportation Answer Date Recorded In the past 12 months, has l ack of transportation kept you from medical appts, meetings, work or from getting things needed for daily living? No 11/21/2023 Utilities Answer Date Recorded In the past 12 months, has t he electric, gas, oil or water company threatened to shut off services in your home? No 08/05/2023 Depression Answer Date Recorded Patient Health Questionnaire-2 Score 0 08/05/2023 Comments Unknown Sex and Gender Information Value Date Recorded Sex Assigned at Female 08/16/2022 10:15 AM EDT Legal Sex Female 10:15 AM EDT Gender Identity Female 08/16/2022 10:15 AM EDT Sexual Orientation Straight 08/16/2022 10 :15 AM EDT documented as of this encounter Plan of Treatment Not on file documented as of this encounter Visit Diagnoses Not on filedocumented in this encounter Additional Health Concerns Assessment Noted Time PHQ-9 Depression Total Score: 0 08/05/20 23 3:27 PM EDT documented as of this encounter Care Teams Drain Tile Press Operator Relationship Specialty Start Date End Date Anabell Alcantara MD [address] [place] [address] PCP - General Family Medicine 06/16/22 documented as of this encounter
--- OUTSIDE RECORDS SUMMARY | 2025-03-06 16:30 | XMS_ITS | Encounter Summary ---
Author Organization [employer] Address [address] [facility] [address] [place] [address] Care Team Providers Care Bacteriologist Industrial Name Role Phone Anabell Alcantara MD Primary Care Provider [phone] Encounter Details Date Type Department Care Team (Late st Contact Info) Description 06/20/2024 Orders Only [facility] [address] [place], [place] [phone] Anabell Alcantara MD [address] [place], [place] [phone] Hyperthyroidism (Primary Dx) Social History Tobacco Use Types Packs/Day Years [...] housing situation today? I have hazel myers 08/05/[address] you li [...] AM EDT documented as of this encounter Miscellaneous Notes * Result Encounter Note - Anabell Alcantara MD - 06/20/2024 3:07 PM EDT Please let patient that her thyroid stimulating hormone and thyroid hormones themselves are now normalized. That probably means when we checked last there was a slight swelling or inflammation of herthyroid that has now normalized. There is nothing more to do for now, and if it happens again, we will order a radio-iodide uptake scan of her thyroid. I can talk to her more about this on her 09/10/24 appointment as well. Thank you! documented in this encounter Plan of Treatment Not on file documented as of this encounter Procedures Procedure Name Priority Date/Time Associated Diagnosis Comments TSH W/REFLEX TO FT4 Routine 07/20/2024 1 :46 PM EDT Hyperthyroidism T3, TOTAL Routine 07/20/2024 1:46 PM EDT Hyperthyroidism documented in this encounter Results * T3, Total (07/20/2024 1:46 PM EDT) T3, Total 131 76 - 181 ng/dL [facility] Comment:THIS TEST WAS PERFOR MED AT:[facility] [place] [id number] SHANKAR MD Blood Venous blood specimen / Unknown 07/20/2024 1:46 PM EDT 07/20/2024 3:58 PM EDT us Anabell Alcantara MD LAB BLOOD ORDERABLES Final Res ult Performing Organization Address City/[facility] Co de Phone Number [facility] [address] [place] [address] [phone] * TSH W/Reflex to FT4 (07/20/2024 1:46 PM EDT) TSH reflex Free T4 0.71 0.32 - 4.0 uIU/mL [facility] Blood Venous blood specimen / Unknown 07/20/2024 1:46 PM EDT 07/20/2024 3:58 PM EDT us Anabell Alcantara MD LAB BLOOD ORDERABLES Final Res ult Performing Organization Address [facility] Co de Phone Number [facility] [address] [place] [address] [phone] documented in this encounter Visit Diagnoses Diagnosis Hyperthyroidism- Primary Thyrotoxicosis without mention of goiter or other cause, without mention of thyrotoxic crisis or storm documented in this encounter Additional Health Concerns Assessment Noted Time PHQ-9 Depression Total Score: 0 08/05/20 23 3:27 PM EDT documented as of this encounter Care Teams Bacteriologist Industrial Relationship Specialty Start Date End Date Anabell Alcantara MD [address] [place] [phone] PCP - General Family Medicine 06/16/22 documented as of this encounter
--- OUTSIDE RECORDS SUMMARY | 2025-03-06 16:30 | XMS_ITS | Encounter Summary ---
Author Organization [employer] Address [address] [facility] [address] [place] [address] Care Team Providers Care Technician Inventory Specialist Name Role Phone Anabell Alcantara MD Primary Care Provider [phone] Reason for Visit * Reason Onset Date Comments chart prep 03/05/2025 Encounter Details Date Type Department Care Team ([facility] st Contact Info) Description 03/05/2025 Telephone [facility] [address] [place], [place] [phone] Anabell Alcantara MD [address] [place] [address] chart prep Social History Tobacco Use Types Packs/Day Years [...] the past 12 months, has t he dbTwang, gas, oil or water company threatened to shut off services in your home? No 11/30/2024 Depression Answer Date Recorded Patient Health Questionnaire-2 Score 1 12/14/2024 Internet Access Answer Date Recorded Internet Access Q1 Yes 11/30/2024 Internet Access Q2 Not on file 11/30/2024 Comments Unknown Sex and Gender Information Value Date Recorded Sex Assigned at Female 08/16/2022 10:15 AM EDT Legal Sex Female 10:15 AM EDT Gender Identity Female 08/16/2022 10:15 AM EDT Sexual Orientation Straight 08/16/2022 10 :15 AM EDT documented as of this encounter Miscellaneous Notes * Telephone Encounter - Dinah Alarcon MA - 03/05/2025 12:59 PM EDT Chart Prep Labs: done Images: not applicable Referrals: not applicable Vaccines due: Covid, ipv Screenings: LMP Overdue care gaps: PHQ-9, ANI-7, Disability screen, and Tobacco documented in this encounter Plan of Treatment Not on file documented as of this encounter Visit Diagnoses Not on filedocumented in this encounter Additional Health Concerns Assessment Noted Time PHQ-9 Depression Total Score: 8 12/14/19 25 11:24 AM EST documented as of this encounter Care Teams Technician Inventory Specialist Relationship Specialty Start Date End Date Anabell Alcantara MD [address] [place] [address] PCP - General Family Medicine 06/16/22 documented as of this encounter
--- OUTSIDE RECORDS SUMMARY | 2025-03-06 16:30 | XMS_ITS | Encounter Summary ---
Author Organization [employer] Address [address] [facility] [address] [place] [address] Care Team Providers Care Gui Developer Name Role Phone Anabell Alcantara MD Primary Care Provider [phone] Reason for Visit * Reason Onset Date Comments Med Refill 01/29/2025 Encounter Details Date Type Department Care Team (Late st Contact Info) Description 01/29/2025 Refill [facility] [address] [place], [place] [phone] Anabell Alcantara MD [address] [place] [address] Social History Tobacco Use Types Packs/Day Years [...] things needed for daily living? No 11/30/2024 Utilities Answer Date Recorded In the past [...] documented as of this encounter Care Teams Gui Developer Relationship Specialty Start Date End Date Anabell Alcantara MD [address] [place] [phone] PCP - General Family Medicine 06/16/22 documented as of this encounter
--- OUTSIDE RECORDS SUMMARY | 2025-03-06 16:30 | XMS_ITS | Encounter Summary ---
Author Organization [employer] Address 75 [facility] 7t [place] [address] Care Team Providers Care Vegetable Washing Machine Operator Name Role Phone Anabell Alcantara MD Primary Care Provider [phone] Reason for Visit * Reason Onset Date Comments Med Refill 01/29/2025 Encounter Details Date Type Department Care Team (Late st Contact Info) Description 01/29/2025 Refill [facility] MED[facility] [address] [place] [address] Duane Ramos MD [address] [place] [address] Social History Tobacco Use Types Packs/Day Years [...] documented as of this encounter Care Teams Vegetable Washing Machine Operator Relationship Specialty Start Date End Date Anabell Alcantara MD [address] [place] [address] PCP - General Family Medicine 06/16/22 documented as of this encounter
--- OUTSIDE RECORDS SUMMARY | 2025-03-06 16:30 | XMS_ITS | Encounter Summary ---
Author Organization [employer] Address [address] [facility] [address] [place] [address] Care Team Providers Care Borderer Name Role Phone Anabell Alcantara MD Primary Care Provider [phone] Reason for Visit * Reason Onset Date Comments Med Refill 10/30/2024 Encounter Details Date Type Department Care Team (Late st Contact Info) Description 10/30/2024 Refill [facility] [address] [place], [place] [phone] Anabell Alcantara MD [address] [place] [address] Social History Tobacco Use Types Packs/Day Years [...] your housing situation today? I have hazel meyrs 08/05/[address] you li [...] documented as of this encounter Care Teams Borderer Relationship Specialty Start Date End Date Anabell Alcantara MD [address] [place] [address] PCP - General Family Medicine 06/16/22 documented as of this encounter
--- OUTSIDE RECORDS SUMMARY | 2025-03-06 16:30 | XMS_ITS | Encounter Summary ---
Author Organization [employer] Address 75 [facility] 7t [place] [address] Care Team Providers Care Biostatistician Name Role Phone Anabell Alcantara MD Primary Care Provider [phone] Reason for Visit * Reason Onset Date Comments Med Refill 02/09/2025 Encounter Details Date Type Department Care Team ([facility] st Contact Info) Description 02/09/2025 Refill [facility] MED[facility]INE [address] [place], [place] [phone] Anabell Alcantara MD [address] [place], [place] [phone] Social History Tobacco Use Types Packs/Day Years [...] documented as of this encounter Care Teams Biostatistician Relationship Specialty Start Date End Date Anabell Alcantara MD [address] [place] [address] PCP - General Family Medicine 06/16/22 documented as of this encounter
--- OUTSIDE RECORDS SUMMARY | 2025-03-06 16:30 | XMS_ITS | Encounter Summary ---
Author Organization [employer] Address 75 [facility] 7t [place] [address] Care Team Providers Care Commercial Loan Processor Name Role Phone Anabell Alcantara MD Primary Care Provider [phone] Reason for Visit * Reason Comments Follow-up Encounter Details Date Type Department Care Team ([facility] st Contact Info) Description 03/06/2025 4:[address] [facility] MED[facility] [address] [place], [place] [phone] Anabell Alcantara MD [address] [place], [place] [phone] Other fatigue (Primary Dx) Social History Tobacco Use Types [...] the past 12 months, has t he Foodist, [employer], oil or water company threatened to shut off services in your home? No 11/30/2024 Depression Answer Date Recorded Patient Health Questionnaire-2 Score 1 12/14/2024 Internet Access Answer Date Recorded Internet Access Q1 Yes 11/30/2024 Internet Access Q2 Not on file 11/30/2024 Comments No Sex and Gender Information Value Date Recorded Sex Assigned at Female 08/16/2022 10:15 AM EDT Legal Sex Female 10:15 AM EDT Gender Identity Female 08/16/2022 10:15 AM EDT Sexual Orientation Straight 08/16/2022 10 :15 AM EDT documented as of this encounter Last Filed Vital Signs Vital Sign Reading [...] Mass Index 35 03/06/2025 4:05 PM EDT documented in this encounter Plan of Treatment Scheduled Orders Name Type Priority Associated Diagnoses Orde r Schedule CBC auto differential Lab Routine Other fatigue Expected: 03/06/2025 (Approximate), Expires: 03/06/2026 Vitamin D, 25-Hydroxy, Total, Immunoassay Lab Routine Other fatigue Expected: 03/06/2025 (Approximate), Expires: 03/06/2026 TSH W/Reflex to FT4 Lab Routine Other fatigue Expected: 03/06/2025 (Approximate), Expires: 03/06/2026 Lipid Panel, Standard Lab Routine Other fatigue Expected: 03/06/2025 (Approximate), Expires: 03/06/2026 documented as of this encounter Visit Diagnoses Diagnosis Other fatigue- Primary documented in this encounter Additional Health Concerns Assessment Noted Time PHQ-9 Depression Total Score: 8 12/14/19 25 11:24 AM EST documented as of this encounter Care Teams Commercial Loan Processor Relationship Specialty Start Date End Date Anabell Alcantara MD [address] [place] [address] PCP - General Family Medicine 06/16/22 documented as of this encounter
--- OUTSIDE RECORDS SUMMARY | 2025-03-06 16:30 | XMS_ITS | Encounter Summary ---
Author Organization [employer] Address [address] [facility] [address] 7t [place] [address] Care Team Providers Care Miller Helper Distillery Name Role Phone Anabell Alcantara MD Primary Care Provider [phone] Encounter Details Date Type Department Care Team (Late st Contact Info) Description 02/13/2025 Orders Only [facility] [address] [place], [place] [phone] More Zheng Social History Tobacco Use Types Packs/Day Years [...] Procedure Name Priority Date/Time Associated Diagnosis Comments HPV MRNA E6/E7 REFLEX TO HPV 16, 18/45 Routine 10/30/2024 12:00 AM EST documented in this encounter Results * HPV mRNA E6/E7 w/Reflex to HPV Genotypes 16, 18/45 (10/30/2024 12:00 AM EST) us Historical Provider LAB CYTOLOGY ORDERABLES F inal Result documented in this encounter Visit Diagnoses Not on filedocumented in this encounter Additional Health Concerns Assessment Noted Time PHQ-9 Depression Total Score: 8 12/14/19 25 11:24 AM EST documented as of this encounter Care Teams Miller Helper Distillery Relationship Specialty Start Date End Date Anabell Alcantara MD [address] [place] [address] PCP - General Family Medicine 06/16/22 documented as of this encounter
--- OUTSIDE RECORDS SUMMARY | 2025-03-06 16:30 | XMS_ITS | Encounter Summary ---
Author Organization [employer] Address 75 [facility] 7t [place] [address] Care Team Providers Care Ocean Export Coordinator Name Role Phone Anabell Alcantara MD Primary Care Provider [phone] Reason for Visit * Reason Onset Date Comments Med Refill 12/14/2024 Encounter Details Date Type Department Care Team ([facility] st Contact Info) Description 12/14/2024 Refill [facility] MED[facility] [address] [place], [place] [phone] Anabell Alcantara MD 230 [place], [place] [phone] Social History Tobacco Use Types Packs/Day Years [...] AM EDT documented as of this encounter Functional Status * Over the past 2 weeks, how often have you been bothered by any of the following problems? Question Answer Date of Assessment Author Patient Health Questionnaire-2 Score 1 11/18 11:24 AM Violeta Anthony MA * Little interest or pleasure in doing things Answer Date of Assessment Author Several days 12/14/2024 11:24 AM Violeta Anthony MA * Feeling down, depressed, or hopeless Answer Date of Assessment Author Not at all 12/14/2024 11:24 AM Violeta Anthony MA * Trouble falling or staying asleep, or sleeping too much Answer Date of Assessment Author Nearly every day 12/14/2024 11:24 AM Violeta Anthony MA * Feeling tired or having little energy Answer Date of Assessment Author Nearly every day 12/14/2024 11:24 AM Violeta Anthony MA * Poor appetite or overeating Answer Date of Assessment Author Several days 12/14/2024 11:24 AM Violeta Anthony MA * Feeling bad about yourself - or that you are a failure or have let yourself or your family down Answer Date of Assessment Author Not at all 12/14/2024 11:24 AM Violeta Anthony MA * Trouble concentrating on things, such as reading the newspaper or watching television Answer Date of Assessment Author Not at all 12/14/2024 11:24 AM Violeta Anthony MA * Moving or speaking so slowly that other people could have noticed? Or the opposite - being so fidgety or restless that you have been moving around a lot more than usual. Answer Date of Assessment Author Not at all 12/14/2024 11:24 AM Violeta Anthony MA * Thoughts that you would be better off or hurting yourself in some way Answer Date of Assessment Author Not at all 12/14/2024 11:24 AM Violeta Anthony MA * Patient Health Questionnaire-9 Score Answer Date of Assessment Author 8 12/14/2024 11:24 AM Violeta Anthony MA * How difficult have these problems made it for you to do your work, take care of things at home, or get along with other people? Answer Date of Assessment Author Not difficult at all 12/14/2024 11:24 AM Violeta Villalpando MA documented as of this encounter Plan of Treatment Not on file documented as of this encounter Visit Diagnoses Not on filedocumented in this encounter Additional Health Concerns Assessment Noted Time PHQ-9 Depression Total Score: 8 12/14/19 25 11:24 AM EST documented as of this encounter Care Teams Ocean Export Coordinator Relationship Specialty Start Date End Date Anabell Alcantara MD [address] [place] [address] PCP - General Family Medicine 06/16/22 documented as of this encounter
--- OUTSIDE RECORDS SUMMARY | 2025-03-06 16:30 | XMS_ITS | Encounter Summary ---
Author Organization [employer] Address [address] [facility] [address] 7t [place] [address] Care Team Providers Care Labor Relations Director Name Role Phone Anabell Alcantara MD Primary Care Provider [phone] Reason for Visit * Reason Onset Date Comments Appointment Request 02/16/2024 Encounter Details Date Type Department Care Team ([facility] st Contact Info) Description 02/16/2024 Telephone [facility] MEDICINE 230 [place], [place] [phone] Anabell Alcantara MD [address] [place], [place] [phone] Appointment Request Social History Tobacco Use Types Packs/Day Years [...] encounter Miscellaneous Notes * Telephone Encounter - Hugh White - 02/16/2024 9:07 AM EDT Tc from patient calling to make a follow-up appt in regards to the [place] that [place] [facility] documented in this encounter Plan of Treatment Not on file documented as of this encounter Visit Diagnoses Not on filedocumented in this encounter Additional Health Concerns Assessment Noted Time PHQ-9 Depression Total Score: 0 08/05/20 23 3:27 PM EDT documented as of this encounter Care Teams Labor Relations Director Relationship Specialty Start Date End Date Anabell Alcantara MD [address] [place] [address] PCP - General Family Medicine 06/16/22 documented as of this encounter
--- OUTSIDE RECORDS SUMMARY | 2025-03-06 16:30 | XMS_ITS | Encounter Summary ---
Author Organization [employer] Address [address] [facility] [address] 7t [place] [address] Care Team Providers Care Bistro Server Name Role Phone Anabell Alcantara MD Primary Care Provider [phone] Encounter Details Date Type Department Care Team (Latest Contact Info) Description 03/06/2025 Travel Social History Tobacco Use Types Packs/Day Years [...] documented as of this encounter Care Teams Bistro Server Relationship Specialty Start Date End Date Anabell Alcantara MD [address] [place] [address] PCP - General Family Medicine 06/16/22 documented as of this encounter
--- OUTSIDE RECORDS SUMMARY | 2025-03-06 16:31 | XMS_ITS | Encounter Summary ---
Author Organization [employer] Address [address] [facility] [address] 7t [place] [address] Care Team Providers Care Wire Dropper Name Role Phone Anabell Alcantara MD Primary Care Provider [phone] Reason for Visit * Reason Onset Date Comments Appointment 01/11/2023 Encounter Details Date Type Department Care Team ([facility] st Contact Info) Description 01/11/2023 Telephone [facility] D[facility] [address] [place] [address] Diegosusanne SHANIKA Burger [address] [place] [address] Appointment Social History Tobacco Use Types Packs/Day Years Used Date Smoking Tobacco: Never Smokeless Tobacco: Never Alcohol Use Standard Drinks/Week Comments Never 0 (1 standard drink = 0.6 oz pur e alcohol) Depression Answer Date Recorded Patient Health Questionnaire-9 Score 15 12/24/2022 Depression Answer Date Recorded Patient Health Questionnaire-2 Score 6 12/24/2022 Comments Unknown Sex and Gender Information Value Date Recorded Sex Assigned at Female 08/16/2022 10:15 AM EDT Legal Sex Female 10:15 AM EDT Gender Identity Female 08/16/2022 10:15 AM EDT Sexual Orientation Straight 08/16/2022 10 :15 AM EDT COVID-19 Exposure Response Date Recorded In the last 10 days, have yo u been in contact with someone who was confirmed or suspected to have Coronavirus/COVID-19? No / Unsure 01/10/2023 12:52 PM EDT documented as of this encounter Miscellaneous Notes * Telephone Encounter - Shandra Baer - 01/11/2023 10:34 AM EDT Patient called in stating that she awas given a referral for Maxillofacial Surgery in [place] but she was scheduled for October and is looking to have the appt sooner. She said she was told by provider to contact office in the event that Dr. Perrin had any openings. I did confirm with patient that as of now there are no open slots and Dr. Perrin does have a waiting list. Patient has been placed on the waiting list in thee event that she may be scheduled to come in and have work done sooner. She understands that we do not provide GA or sedation services in our office. documented in this encounter Plan of Treatment Not on file documented as of this encounter Visit Diagnoses Not on filedocumented in this encounter Additional Health Concerns Assessment Noted Time PHQ-9 Depression Total Score: 15 023 1:44 PM EST documented as of this encounter Care Teams Wire Dropper Relationship Specialty Start Date End Date Anabell Alcantara MD [address] [place] [address] PCP - General Family Medicine 06/16/22 documented as of this encounter
--- OUTSIDE RECORDS SUMMARY | 2025-03-06 16:31 | XMS_ITS | Encounter Summary ---
Author Organization [employer] Address [address] [facility] [address] [place] [address] Care Team Providers Care Elevator Pilot Name Role Phone Anabell Alcantara MD Primary Care Provider [phone] Encounter Details Date Type Department Care Team (Late st Contact Info) Description 09/01/2023 Abstract [facility] MEDICINE 230 [place], [place] [phone] Anabell Alcantara MD 230 [place], [place] [phone] Social History Tobacco Use Types Packs/Day Years [...] is your housing situation today? I have hazelbright myers 08/05/[address] you [...] from getting things needed for daily living? Yes, it has kept me from medical appointments or getting medications. 07/24/2023 Utilities Answer Date Recorded In the past [...] documented as of this encounter Care Teams Elevator Pilot Relationship Specialty Start Date End Date Anabell Alcantara MD [address] [place] [address] PCP - General Family Medicine 06/16/22 documented as of this encounter
--- OUTSIDE RECORDS SUMMARY | 2025-03-06 16:31 | XMS_ITS | Encounter Summary ---
Author Organization [employer] Address 75 [facility] 7t [place] [address] Care Team Providers Care Event Host Name Role Phone Anabell Alcantara MD Primary Care Provider [phone] Encounter Details Date Type Department Care Team (Late st Contact Info) Description 02/11/2023 Orders Only [facility] MEDICINE 230 [place], [place] [phone] Anabell Alcantara MD [address] [place], [place] [phone] Chronic fatigue (Primary Dx) Social History Tobacco Use [...] suspected to have Coronavirus/COVID-19? No / Unsure 02/07/2023 3:58 PM EDT documented as of this encounter Plan of Treatment Not on file documented as of this encounter Visit Diagnoses Diagnosis Chronic fatigue- Primary Other malaise and fatigue documented in this encounter Additional Health Concerns Assessment Noted Time PHQ-9 Depression Total Score: 15 023 1:44 PM EST documented as of this encounter Care Teams Event Host Relationship Specialty Start Date End Date Anabell Alcantara MD [address] [place] [address] PCP - General Family Medicine 06/16/22 documented as of this encounter
--- OUTSIDE RECORDS SUMMARY | 2025-03-06 16:31 | XMS_ITS | Encounter Summary ---
Author Organization [employer] Address 75 [facility] 7t [place] [address] Care Team Providers Care Software Engineering Supervisor Name Role Phone Anabell Alcantara MD Primary Care Provider [phone] Encounter Details Date Type Department Care Team (Late st Contact Info) Description 02/09/2023 Orders Only [facility] MEDICINE 230 [place], [place] [phone] Anabell Alcantara MD 230 [place], [place] [phone] Social History Tobacco Use Types Packs/Day Years [...] documented as of this encounter Care Teams Software Engineering Supervisor Relationship Specialty Start Date End Date Anabell Alcantara MD [address] [place] [address] PCP - General Family Medicine 06/16/22 documented as of this encounter
--- OUTSIDE RECORDS SUMMARY | 2025-03-06 16:31 | XMS_ITS | Encounter Summary ---
Author Organization [employer] Address [address] [facility] [address] [place] [address] Care Team Providers Care Whey Department Operator Name Role Phone Anabell Alcantara MD Primary Care Provider [phone] Encounter Details Date Type Department Care Team (Late st Contact Info) Description 09/01/2023 Abstract [facility] MEDICINE 230 [place], [place] [phone] Anabell Alcantara MD [address] [place], [place] [phone] Social History Tobacco Use Types Packs/Day Years [...] documented as of this encounter Care Teams Whey Department Operator Relationship Specialty Start Date End Date Anabell Alcantara MD [address] [place] [address] PCP - General Family Medicine 06/16/22 documented as of this encounter
--- OUTSIDE RECORDS SUMMARY | 2025-03-06 16:31 | XMS_ITS | Encounter Summary ---
Author Organization [employer] Address [address] [facility] [address]t [place] [address] Care Team Providers Care Rental Coordinator Name Role Phone Anabell Alcantara MD Primary Care Provider [phone] Encounter Details Date Type Department Care Team (Late st Contact Info) Description 05/24/2023 Telephone [facility] ADULT DENTAL [address] [place] [address] Gian Waldron DMD [address] [place] [address] Social History Tobacco Use Types Packs/Day Years [...] suspected to have Coronavirus/COVID-19? No / Unsure 04/29/2023 12:36 PM EDT documented as of this encounter Miscellaneous Notes * Telephone Encounter - Rosette Bauer - 05/24/2023 1:15 PM EDT Sweta Sanderson 1995 Patient called in and stated maxillofacial stated that patient has appt in October 2023 and would need a updated referral please advise. documented in this encounter Plan of Treatment Not on file documented as of this encounter Visit Diagnoses Not on filedocumented in this encounter Additional Health Concerns Assessment Noted Time PHQ-9 Depression Total Score: 15 023 1:44 PM EST documented as of this encounter Care Teams Rental Coordinator Relationship Specialty Start Date End Date Anabell Alcantara MD [address] [place] [address] PCP - General Family Medicine 06/16/22 documented as of this encounter
[2025-03-06 18:15] LABS: MANUAL DIFF FLAG NO
[2025-03-06 18:17] LABS: Basophils Absolute Auto 0.1 X10*3/uL (0.0-0.2); Basophils Percent Auto 0.9 % (0-2); Eosinophils Absolute Auto 0.4 X10*3/uL (0.0-0.4); Eosinophils Percent Auto 3.5 % (0-4); Hematocrit 41.8 % (37.0-47.0); Hemoglobin 14.1 g/dl (12.0-16.0); Imm Gran Abs Auto 0.02 X10*3/uL (0.00-0.03); Imm Gran Pct Auto 0.2 % (0.0-0.4); Lymphocytes Percent Auto 38.7 % (20-40); Mean Corpuscular HGB Conc 33.7 g/dl (31.0-35.0); Mean Corpuscular Hemoglobin 30.2 pg (27.0-33.0); Mean Corpuscular Volume 89.5 fL (80.0-98.0); Mean Platelet Volume 10.4 fL (9.4-12.3); Monocytes Absolute Auto 0.5 X10*3/uL (0.1-1.2); Monocytes Percent Auto 5.2 % (2-11); Neutrophils Absolute Auto 5.3 x10*3/uL (2.0-8.3); Neutrophils Percent Auto 51.5 % (45-73); Platelet Count 303 X10*3/uL (160-400); Red Blood Count 4.67 X10*6/uL (4.20-5.50); Red Cell Distribution Width 12.6 % (11.0-16.0); White Blood Count 10.3 X10*3/uL (4.8-10.8)
[2025-03-06 18:51] LABS: Cholesterol 130 mg/dL (<200); HDL Cholesterol 37 mg/dL (>40); LDL Cholesterol Calculated 72 mg/dL (<100); Triglycerides 105 mg/dL (<150)
[2025-03-06 19:00] LABS: TSH reflex Free T4 0.87 uIU/mL (0.32-4.0); Vitamin D 25-OH Total 46.3 ng/mL (>30)
== END 2025-03-06 16:29 | disposition home or self-care (01) ==
LOC: HO.HHCL 16:28
PROVIDERS: Visit Provider General Practice
DX: Z13.6 Encounter for screening for cardiovascular disorders (principal); R53.83 Other fatigue
CPT/HCPCS: 36415; 80061; 82306; 84443; 85025

== ENCOUNTER 2025-06-04 11:47 | Outpatient (REF) | payer OTHER, SELFPAY ==
--- NOTE | ~2025-06-04 | XR_ITS ---
EXAMINATION: XR LUMBAR SPINE 2-3 VIEWS HISTORY: pain COMPARISON: Comparison is made with the prior examination dated 02/22/2022. FINDINGS: AP, lateral, and coned down views of the lumbar spine are submitted. Osseous mineralization is normal. Five nonrib-bearing lumbar vertebral bodies are identified, maintaining normal height and alignment without evidence of fracture or spondylolisthesis. The intervertebral disc spaces are preserved. The posterior elements are intact. The visualized paraspinal soft tissues are unremarkable. XR/XR lumbar spine 2-3V IMPRESSION: Unremarkable examination of the lumbar spine. Electronically signed by: Nolan Sharif MD 06/04/2025 01:23 PM EDT
--- OUTSIDE RECORDS SUMMARY | 2025-06-04 13:18 | XMS_ITS | Encounter Summary ---
Author Organization [employer] Address 75 [facility] 7t [place] [address] Care Team Providers Care Internet Webmaster Name Role Phone Anabell Alcantara MD Primary Care Provider [phone] Reason for Visit * Reason Onset Date Comments Med Refill 10/30/2024 Encounter Details Date Type Department Care Team ([facility] st Contact Info) Description 10/30/2024 Refill [facility] MEDICINE 230 [place], [place] [phone] Anabell Alcantara MD [address] [place], [place] [phone] Social History Tobacco Use Types Packs/Day Years [...] documented as of this encounter Care Teams Internet Webmaster Relationship Specialty Start Date End Date Anabell Alcantara MD [address] [place] [address] PCP - General Family Medicine 06/16/22 documented as of this encounter
== END 2025-06-04 11:48 | disposition home or self-care (01) ==
LOC: HO.HHCX 11:47
PROVIDERS: PCP General Practice; Visit Provider General Practice
DX: M54.50 Low back pain, unspecified (principal); G89.29 Other chronic pain
CPT/HCPCS: 72100

== ENCOUNTER → 2025-06-04 12:38 | Outpatient (BNV) | payer OTHER, SELFPAY | PROVIDERS: PCP General Practice; Visit Provider Radiology Diagnostic Radiology | DX: M54.50 Low back pain, unspecified (principal) | CPT/HCPCS: 72100 ==